=== PATIENT | female | born 1985 | race Caucasian/White ===

== ENCOUNTER 2020-05-04 06:19 | Emergency (ER) | payer OTHER, SELFPAY ==
--- NOTE | ~2020-05-04 | CT_ITS ---
EXAMINATION: CT ABDOMEN AND PELVIS WITHOUT CONTRAST CLINICAL INFORMATION: Right flank pain COMPARISON: None TECHNIQUE: Multidetector volumetric imaging was performed from the superior aspect of the liver through the pubic symphysis. Sagittal and coronal reformatted images were obtained on the technologist's workstation. This CT examination was performed using dose optimization techniques as appropriate, variously including the following: *Automated exposure control *Adjustment of mA and/or kV according to patient size (this includes techniques or standardized protocols for targeted exams where dose is matched to indication/reason for exam; i.e. extremities or head) *Use of iterative reconstruction technique DLP: 1087 mGy-cm FINDINGS: LUNG BASES: The visualized lung bases are unremarkable. LIVER, GALLBLADDER, AND BILIARY TREE: The liver is low in attenuation suggestive of fatty infiltration. No focal liver lesion is seen. The gallbladder is not identified. There is no biliary duct dilatation. PANCREAS: Unremarkable. SPLEEN: Unremarkable. ADRENAL GLANDS: Unremarkable. KIDNEYS AND URETERS: There is mild right hydronephrosis and ureteral dilatation from a small 2 mm right UVJ stone. There is a small 5 mm fatty lesion in the medial lower pole of the right kidney probably representing an angiomyolipoma. The left kidney is unremarkable. BLADDER: Small 2 mm right UVJ stone otherwise unremarkable exam. GASTROINTESTINAL TRACT: The small and large bowel are unremarkable. The appendix is unremarkable. The stomach is unremarkable. There is a asymmetric soft tissue along the right posterior lateral wall of the rectum axial image 77. This area measures 4.4 x 2.5 x 2.6 cm in sagittal AP and transverse dimension, for example sagittal reconstructed image 73 and coronal reconstructed image 78. ABDOMINAL WALL: There is a small umbilical hernia containing fat. LYMPH NODES: Normal. VASCULAR: Unremarkable. PELVIC VISCERA: There is an IUD in the uterus in satisfactory position. OSSEOUS STRUCTURES: There is spondylolysis and grade 2 spondylolisthesis at L5-S1. There is ankylosis of the L5-S1 disc space. CT/CT abdomen pelvis wo con IMPRESSION: Mild right hydronephrosis and ureteral dilatation from a 2 mm right UVJ stone. Fatty liver. Asymmetric soft tissue adjacent to the right posterior lateral wall of the rectum. Clinical correlation recommended.
[2020-05-04 06:25] VITALS: BP 159/84; PULSE 74; RESP 20; TEMP 36.6; O2SAT 95; BMI 42.0
[2020-05-04 06:45] LABS: MANUAL DIFF FLAG NO
--- NOTE | 2020-05-04 06:46 | PC.NURSE ---
IV established, labs and urine obtained and sent. at bedside for primary eval.
[2020-05-04 06:49] LABS: Glucose Urine UA NEG (NEG); Leukocyte Esterase Urine TRACE (NEG); Nitrite Urine NEG (NEG); Specific Gravity - Urine >= 1.030 (1.005-1.025); UACC Culture Trigger YES; Urine Blood 3+ (NEG); Urine Ketones NEG (NEG); Urine Protein 1+ MG/DL (NEG-TRACE)
[2020-05-04 06:50] LABS: Basophils Percent Auto 0.4 % (0-2); Eosinophils Absolute Auto 0.1 X10*3/uL (0.0-0.4); Eosinophils Percent Auto 1.1 % (0-4); Hematocrit 39.6 % (37-47); Hemoglobin 13.8 g/dl (12.0-16.0); Imm Gran Abs Auto 0.04 X10*3/uL (0.00-0.03); Imm Gran Pct Auto 0.4 % (0.0-0.4); Lymphocytes Absolute Auto 2.2 X10*3/uL (1.2-4.9); Lymphocytes Percent Auto 23.2 % (20-40); Mean Corpuscular HGB Conc 34.8 g/dl (31.0-35.0); Mean Corpuscular Hemoglobin 29.1 pg (27.0-33.0); Mean Corpuscular Volume 83.5 fL (80-98); Mean Platelet Volume 10.3 fL (9.4-12.3); Monocytes Absolute Auto 0.5 X10*3/uL (0.1-1.2); Monocytes Percent Auto 5.2 % (2-11); Neutrophils Absolute Auto 6.5 X10*3/uL (2.0-8.3); Neutrophils Percent Auto 69.7 % (45-73); Platelet Count 242 X10*3/uL (160-400); Red Blood Count 4.74 X10*6/uL (4.20-5.50); Red Cell Distribution Width 11.8 % (11.0-16.0); White Blood Count 9.3 X10*3/uL (4.8-10.8)
[2020-05-04 06:51] LABS: Appearance Urine TURBID; Color Urine YELLOW
--- NOTE | 2020-05-04 06:51 | ED_ITS ---
HPI - Abdominal Pain General Chief Complaint: Abdominal Pain Stated Complaint: ABD PAIN/VOMITING Time Seen by Provider: 05/04/20 06:48 Source: patient Mode of arrival: ambulatory Limitations: no limitations History of Present Illness HPI narrative: 34-year-old female came in today for evaluation of right flank/abdominal pain. 34-year-old female started to have had in with lower abdominal pain at 04:00 awoke her up from sleep, patient describes the pain as severe 10/10 sharp pain mainly in the right flank area radiates down to the right side of the abdomen and the lower left abdominal quadrant also, describes the pain as constant, associated with nausea and vomiting and diarrhea (nonbloody watery diarrhea), n ever has similar pain in the past, no vaginal bleed or discharge patient have IUD do not think she can be today. Related Data Allergies Allergy/AdvReac Type Severity Reaction Status Date / Time No Known Allergies Allergy Verified 05/04/20 06:32 Review of Systems Review of Systems All other systems are reviewed and are negative Constitutional: Reports as per HPI and Reports no additional constitutional complaints Eyes: Reports as per HPI and Reports no additional eye complaints Reports system reviewed and no additional complaints, except as documented Cardiovascular: Reports as per HPI and Reports no additional cardiovascular complaints Respiratory: Reports as per HPI and Reports no additional respiratory complaints Gastrointestinal: Reports as per HPI and Reports no additional gastrointestinal complaints Genitourinary: Reports no additional female genitourinary complaints Musculoskeletal: Reports no additional musculoskeletal complaints Skin/Breast: Reports system reviewed and no additional complaints, except as docu Psychiatric: Reports no additional psychiatric complaints Endocrine: Reports no additional endocrine complaints Hematologic/Lymphatic: Reports no additional hematologic/lymphatic complaints Allergic/Immunologic: Reports no additional allergic/immunologic complaints Reports system reviewed and no additional complaints, except as documented and Reports Abnormal speech present Physical Exam Vital Signs: Vital Signs: Last Vital Signs Temp 97.8 F 05/04/20 06:25 Pulse 77 05/04/20 07:40 Resp 16 05/04/20 07:40 BP 121/66 05/04/20 07:40 Pulse Ox 97 05/04/20 07:40 Body Mass Index 42.0 Vital signs have been reviewed as appeared to be correct. Blood pressure in the high range. Heart rate normal. Respiration rate normal. Temperature normal. Oxygen saturation normal. Appearance: Alert. Oriented X3. No acute distress. Head: Normal external exam. Normocephalic. Atraumatic. No Gan signs noted. No raccoon eyes noted Eyes: PERRLA. EOMI. Conjunctiva and sclera normal. Eyelids normal. ENT: TM's Normal. Pharynx normal. Uvula midline. Moist mucous membranes. No trismus noted. No drooling noted. No muffled voice noted. Neck: Normal inspection. Neck supple. FROM. No adenopathy. Thyroid Normal. No meningeal signs. No neck mass noted. CVS: Normal heart rate and rhythm. Heart sound normal. No murmurs noted. Pulses normal throughout. Respiratory: No respiratory distress. Painless inspiration. Breath sounds normal. No wheezes/rales/rhonchi noted. Chest nontender. No accessory muscle usage noted or decreased air movement noted. Abdomen: Soft, right CVA tenderness, lower abdominal pain, no rebound tenderness, no guarding. Bowel sounds normal in all 4 quadrants. No distention noted. No organomegaly noted. No visible injury noted. Back: Right CVA tenderness. Full range of motion noted. Skin: Skin warm and dry. Normal skin color. Normal skin turgor. No rashes/lesions/lacerations noted. Extremities: No lower extremity edema. Extremities exhibit normal range of motion. Extremities nontender. Neuro: Oriented X 3. No motor deficit. No sensory deficit. Reflexes normal. Course Course Course Narrative: Assessment and plan. 34-year-old female came in with right flank pain radiating to right groin area, physical exam and CT finding in UA analyses are all consistent with right ureteric stone of 2 mm. Patient now appears comfortable with no symptoms. Patient was instructed to drink plenty of fluids and use NSAIDs for pain, and follow-up with urology. LFTs noted to be elevated which is consistent with the CT finding of fatty liver patient was instructed to follow up with PCP in the regard. MDM - Abdominal Pain Lab Data Attestation: I reviewed the patient's lab results. Result diagrams: 05/04/20 06:37 05/04/20 06:37 Labs: Lab Results 05/04/20 05/04/20 05/04/20 Range/Units 06:37 06:37 06:37 WBC 9.3 (4.8-10.8) X10*3/uL RBC 4.74 (4.20-5.50) X10*6/uL Hgb 13.8 (12.0-16.0) g/dl Hct 39.6 (37-47) % MCV 83.5 (80-98) fL MCH 29.1 (27.0-33.0) pg MCHC 34.8 (31.0-35.0) g/dl RDW 11.8 (11.0-16.0) % Plt Count 242 (160-400) X10*3/uL MPV 10.3 (9.4-12.3) fL Immature Gran % (Auto) 0.4 (0.0-0.4) % Neut % (Auto) 69.7 (45-73) % Lymph % (Auto) 23.2 (20-40) % [place] % (Auto) 5.2 (2-11) % Eos % (Auto) 1.1 (0-4) % Baso % (Auto) 0.4 (0-2) % Lymph # (Auto) 2.2 (1.2-4.9) X10*3/uL [place] # (Auto) 0.5 (0.1-1.2) X10*3/uL Eos # (Auto) 0.1 (0.0-0.4) X10*3/uL Baso # (Auto) 0.0 (0.0-0.2) X10*3/uL Abs Immat Gran (auto) 0.04 H (0.00-0.03) X10*3/uL Absolute Neuts (auto) 6.5 (2.0-8.3) X10*3/uL Absolute Nucleated RBC 0.000 (0.0-0.012) X10*3/uL Nucleated RBC % (auto) 0.0 (0.0-0.2) /100WBC Hold Blue Top Sodium 139 (135-145) mmol/L Potassium 3.7 (3.3-5.1) mmol/L Chloride 104 (96-108) mmol/L Carbon Dioxide 20 L (22-29) mmol/L Anion Gap 19 (12-20) BUN 16 (9-16) mg/dL Creatinine 0.65 (0.5-1.4) mg/dL Estim Creat Clear Calc 138.2 Estimated GFR > 60 Random Glucose 179 H (60-115) mg/dL Calcium 9.3 (8.4-10.2) mg/dL Total Bilirubin 1.2 H (0.0-1.0) mg/dL Direct Bilirubin 0.4 (0.0-0.5) mg/dL AST 48 H (5-31) U/L ALT 73 H (0-31) U/L Alkaline Phosphatase 57 (39-117) U/L Total Protein 7.4 (6.5-8.0) g/dL Albumin 4.7 (3.5-5.0) g/dL Lipase 36 (8-78) U/L Urine Color YELLOW Urine Appearance TURBID Urine pH 5.0 (5.0-8.0) Ur Specific [place] >= 1.030 H (1.005-1.025) Urine Protein 1+ H (NEG-TRACE) MG/DL Urine Glucose (UA) NEG (NEG) MG/DL Urine Ketones NEG (NEG) MG/DL Urine Blood 3+ H (NEG) Urine Nitrite NEG (NEG) Ur Leukocyte Esterase TRACE H (NEG) Urine RBC 10-14 H (0) /HPF Urine WBC 1-4 (0-4) /HPF Ur Squamous Epith Cells 2+ /LPF Amorphous Sediment 3+ /LPF Urine Bacteria NONE /LPF Urine Mucus 2+ /LPF Urine Test (NEGATIVE) 05/04/20 05/04/20 Range/Units 06:37 06:40 WBC (4.8-10.8) X10*3/uL RBC (4.20-5.50) X10*6/uL Hgb (12.0-16.0) g/dl Hct (37-47) % MCV (80-98) fL MCH (27.0-33.0) pg MCHC (31.0-35.0) g/dl RDW (11.0-16.0) % Plt Count (160-400) X10*3/uL MPV (9.4-12.3) fL Immature Gran % (Auto) (0.0-0.4) % Neut % (Auto) (45-73) % Lymph % (Auto) (20-40) % [place] % (Auto) (2-11) % Eos % (Auto) (0-4) % Baso % (Auto) (0-2) % Lymph # (Auto) (1.2-4.9) X10*3/uL [place] # (Auto) (0.1-1.2) X10*3/uL Eos # (Auto) (0.0-0.4) X10*3/uL Baso # (Auto) (0.0-0.2) X10*3/uL Abs Immat Gran (auto) (0.00-0.03) X10*3/uL Absolute Neuts (auto) (2.0-8.3) X10*3/uL Absolute Nucleated RBC (0.0-0.012) X10*3/uL Nucleated RBC % (auto) (0.0-0.2) /100WBC Hold Blue Top SEE NOTE Sodium (135-145) mmol/L Potassium (3.3-5.1) mmol/L Chloride (96-108) mmol/L Carbon Dioxide (22-29) mmol/L Anion Gap (12-20) BUN (9-16) mg/dL Creatinine (0.5-1.4) mg/dL Estim Creat Clear Calc Estimated GFR Random Glucose (60-115) mg/dL Calcium (8.4-10.2) mg/dL Total Bilirubin (0.0-1.0) mg/dL Direct Bilirubin (0.0-0.5) mg/dL AST (5-31) U/L ALT (0-31) U/L Alkaline Phosphatase (39-117) U/L Total Protein (6.5-8.0) g/dL Albumin (3.5-5.0) g/dL Lipase (8-78) U/L Urine Color Urine Appearance Urine pH (5.0-8.0) Ur Specific [place] (1.005-1.025) Urine Protein (NEG-TRACE) MG/DL Urine Glucose (UA) (NEG) MG/DL Urine Ketones (NEG) MG/DL Urine Blood (NEG) Urine Nitrite (NEG) Ur Leukocyte Esterase (NEG) Urine RBC (0) /HPF Urine WBC (0-4) /HPF Ur Squamous Epith Cells /LPF Amorphous Sediment /LPF Urine Bacteria /LPF Urine Mucus /LPF Urine Test NEG (NEGATIVE) Imaging Data CT scan - abdomen: Radiologist's impression: Mild right hydronephrosis and ureteral dilatation from a 2 mm right UVJ stone. Fatty liver. Asymmetric soft tissue adjacent to the right posterior lateral wall of the rectum. Clinical correlation recommended. [facility] Past Medical History Surgical History History of cholecystectomy Social History Social History Advance Directives: No Advance Directives Information Provided: No
[2020-05-04 06:52] LABS: UPreg QC Valid YES; Urine Pregnancy NEG (NEGATIVE)
[2020-05-04] MEDS: ondansetron HCL 4 MG/2 ML VIAL IVPUSH (07:04)
[2020-05-04] MEDS: 0.9 % Sodium Chloride 1,000 ML 999 ML IVCONT (07:04)
[2020-05-04] MEDS: Ketorolac Tromethamine 15 MG/ML VIAL IV (07:04)
[2020-05-04] MEDS: Morphine Sulfate 2 MG/ML CARTRIDGE 1 MG IVPUSH (07:04)
[2020-05-04 07:08] LABS: Amorphous Sediment Urine 3+ /LPF; Mucus Urine 2+ /LPF; Squamous Epithelial Cell Urine 2+ /LPF
[2020-05-04 07:17] LABS: Alanine Aminotransferase 73 U/L (0-31); Albumin Level 4.7 g/dL (3.5-5.0); Alkaline Phosphatase 57 U/L (39-117); Anion Gap 19 (12-20); Aspartate Amino Transferase 48 U/L (5-31); Bilirubin Direct 0.4 mg/dL (0.0-0.5); Bilirubin Total 1.2 mg/dL (0.0-1.0); Blood Urea Nitrogen 16 mg/dL (9-16); Calcium 9.3 mg/dL (8.4-10.2); Carbon Dioxide 20 mmol/L (22-29); Chloride 104 mmol/L (96-108); Creatinine Clr Calc Pharmacy 138.2; Estimated Glomerular Filt Rate > 60; Glucose Random 179 mg/dL (60-115); Lipase 36 U/L (8-78); Potassium 3.7 mmol/L (3.3-5.1); Sodium 139 mmol/L (135-145); Total Protein 7.4 g/dL (6.5-8.0)
[2020-05-04 07:40] VITALS: BP 121/66; PULSE 77; RESP 16; O2SAT 97
== END 2020-05-04 10:05 | disposition home or self-care (01) ==
PROVIDERS: Emergency Provider Emergency Medicine
DX: N13.2 Hydronephrosis with renal and ureteral calculous obstruction (principal); N39.0 Urinary tract infection, site not specified; K76.0 Fatty (change of) liver, not elsewhere classified; Z90.49 Acquired absence of other specified parts of digestive tract
CPT/HCPCS: 36415; 74176; 80048; 80076; 81001; 81003; 81025; 83690; 85025; 87086; 87147; 96361; 96374; 96375; 99284; J1885; J2270; J2405

== ENCOUNTER → 2020-06-14 14:58 | Outpatient (BNVA) | payer OTHER, SELFPAY | PROVIDERS: Visit Provider Urology | DX: N20.0 Calculus of kidney (principal) | CPT/HCPCS: 99202 ==

== ENCOUNTER 2020-10-21 11:34 | Emergency (ER) | payer OTHER, SELFPAY ==
--- NOTE | ~2020-10-21 | CT_ITS ---
EXAMINATION: CT HEAD WITHOUT CONTRAST CLINICAL INFORMATION: Headache. COMPARISON: None TECHNIQUE: Contiguous axial imaging was performed from the skull base to vertex without intravenous administration of contrast. Additional 2-D coronal and sagittal reformatted images are generated on the CT workstation and uploaded to PACS. This CT examination was performed using dose optimization techniques as appropriate, variously including the following: *Automated exposure control *Adjustment of mA and/or kV according to patient size (this includes techniques or standardized protocols for targeted exams where dose is matched to indication/reason for exam; i.e. extremities or head) *Use of iterative reconstruction technique DLP: 850 mGy-cm FINDINGS: There is no intracranial hemorrhage, hematoma, or extra-axial fluid collection. The ventricles are normal in size. There is no hydrocephalus, edema, or mass effect. The bryant-white matter differentiation appears symmetric. There is no visible acute territorial infarct or mass lesion. The calvarium appears intact. There is no pneumocephalus or orbital emphysema. The visualized sinuses and middle ears and mastoid air cells show no significant mucosal thickening. There are no air-fluid levels. CT/CT head/brain wo con IMPRESSION: Unremarkable noncontrast CT head.
[2020-10-21 11:39] VITALS: BP 136/74; PULSE 79; RESP 16; TEMP 36.4; O2SAT 94; BMI 42.0
[2020-10-21 12:20] LABS: MANUAL DIFF FLAG NO
[2020-10-21 12:22] LABS: Basophils Percent Auto 0.5 % (0-2); Eosinophils Absolute Auto 0.2 X10*3/uL (0.0-0.4); Eosinophils Percent Auto 1.9 % (0-4); Hematocrit 41.5 % (37-47); Hemoglobin 14.6 g/dl (12.0-16.0); Imm Gran Abs Auto 0.01 X10*3/uL (0.00-0.03); Imm Gran Pct Auto 0.1 % (0.0-0.4); Lymphocytes Absolute Auto 2.5 X10*3/uL (1.2-4.9); Lymphocytes Percent Auto 28.8 % (20-40); Mean Corpuscular HGB Conc 35.2 g/dl (31.0-35.0); Mean Corpuscular Hemoglobin 29.1 pg (27.0-33.0); Mean Corpuscular Volume 82.7 fL (80-98); Mean Platelet Volume 10.9 fL (9.4-12.3); Monocytes Absolute Auto 0.6 X10*3/uL (0.1-1.2); Monocytes Percent Auto 7.3 % (2-11); Neutrophils Absolute Auto 5.2 X10*3/uL (2.0-8.3); Neutrophils Percent Auto 61.4 % (45-73); Platelet Count 213 X10*3/uL (160-400); Red Blood Count 5.02 X10*6/uL (4.20-5.50); Red Cell Distribution Width 12.2 % (11.0-16.0); White Blood Count 8.5 X10*3/uL (4.8-10.8)
[2020-10-21 12:38] LABS: Anion Gap 16 (12-20); Blood Urea Nitrogen 6 mg/dL (9-16); Calcium 9.8 mg/dL (8.4-10.2); Carbon Dioxide 23 mmol/L (22-29); Chloride 104 mmol/L (96-108); Creatinine Clr Calc Pharmacy 156.1; Estimated Glomerular Filt Rate > 60; Glucose Random 95 mg/dL (60-115); Potassium 3.6 mmol/L (3.3-5.1); Sodium 139 mmol/L (135-145)
--- NOTE | 2020-10-21 14:20 | ED_ITS ---
HPI - Headache General Chief Complaint: Headache Stated Complaint: HEADACHE Time Seen by Provider: 10/21/20 14:20 Source: patient Mode of arrival: ambulatory Limitations: no limitations History of Present Illness MD elicited complaint: headache Onset (ago): day(s) (2) Onset description: gradually Location: right, left, temporal and occipital Severity: moderate Quality & Timing: aching and throbbing Exacerbating factors: none Relieving factors: nothing Context: occurred at rest Associated symptoms: nausea and other (blurry vision, nausea, BP has been up 140/80s) Treatments prior to arrival: acetaminophen Related Data Home Medications Medication Instructions Recorded Confirmed clotrimazole-betamethasone 1 appl TOPICAL BID 06/14/20 %-0.05 % topical cream Previous Rx's Medication Instructions Recorded ibuprofen 600 mg tablet 600 mg PO Q8H PRN #20 tab 05/04/20 [id number] 1 tab PO Q6H PRN #20 tab 10/21/20 50 mg-325 mg-40 mg tablet cyclobenzaprine 10 mg tablet 10 mg PO TID PRN #14 tab 10/21/20 ondansetron 4 mg disintegrating 4 mg PO Q8H PRN #20 tab 10/21/20 tablet Allergies Allergy/AdvReac Type Severity Reaction Status Date / Time No Known Allergies Allergy Verified 05/04/20 06:32 Review of Systems Review of Systems: Constitutional : No Fever, No Chills, No Fatigue ENT/Mouth : No sore throat, No Rhinorrhea Eyes: No Eye Pain, No Swelling, No Redness Cardiovascular : No Chest Pain, No SOB, No Dyspnea on Exertion Respiratory : No Cough, No Sputum Gastrointestinal : pos Nausea, No Vomiting, No Diarrhea, No abdominal Pain Genitourinary : No Dysuria, No Urinary Frequency, No Hematuria, Musculoskeletal : No joint pain, No Myalgias, No Joint Swelling Skin : No Skin Lesions, No rash Neuro : No Weakness, No Numbness, No Dizziness, positive Headache Psych : No Anxiety/Panic, No Depression Heme/Lymph: No Bruising, No Bleeding,No Lymphadenopathy Endocrine : No Polyuria, No Polydipsia All other systems reviewed and are negative PMFSH Past Medical History Attestation statement: The following information was validated with the patient. Medical History Nephrolithiasis Surgical History History of cholecystectomy History of surgery Social History Social History (Updated 10/21/20 @ 14:40 by Kyra Haynes DO) Alcohol intake: current Alcohol intake frequency: holidays/special occasions only Patient Tobacco Use Status: Never used Tobacco Use of substances other than those prescribed or required for medical reasons: No Advance Directives: Yes Advance Directives Information Provided: Yes Advance Directives on File: No Physical Exam Vital Signs: Vital Signs: Last Vital Signs Temp 97.5 F 10/21/20 11:39 Pulse 79 10/21/20 11:39 Resp 16 10/21/20 11:39 BP 136/74 10/21/20 11:39 Pulse Ox 94 10/21/20 11:39 Body Mass Index 42.0 Appearance: Alert. Oriented X3. No acute distress. Eyes: Pupils equal, round and reactive to light. ENT: Pharynx normal. Neck: Normal inspection. Neck supple. no meningeal signs CVS: Normal heart rate and rhythm. Pulses normal. Respiratory: No respiratory distress. Breath sounds normal. Abdomen: Soft and non-tender. Skin: Skin warm and dry. Normal skin color. Normal skin turgor. Extremities: No lower extremity edema. No calf ttp Neuro: Oriented X 3. No motor deficit. No sensory deficit. Course Course Course Narrative: feels better negative workup MDM - Headache MDM Narrative Medical decision making narrative: 35 yo female with 2 days of headache with BPs in 140s felt her vision was blurry this AM with nausea - at this time no fevers, gradual onset, No AC therapy at this time given onset no fevers gradual normal neuro exams, no meningeal signs doubt FERRY CAPTAIN infection / SAH - will obtain labs, PO medications, CT scan for mass. Lab Data Result diagrams: 10/21/20 12:13 10/21/20 12:12 Labs: Lab Results 10/21/20 10/21/20 Range/Units 12:12 12:13 WBC 8.5 (4.8-10.8) X10*3/uL RBC 5.02 (4.20-5.50) X10*6/uL Hgb 14.6 (12.0-16.0) g/dl Hct 41.5 (37-47) % MCV 82.7 (80-98) fL MCH 29.1 (27.0-33.0) pg MCHC 35.2 H (31.0-35.0) g/dl RDW 12.2 (11.0-16.0) % Plt Count 213 (160-400) X10*3/uL MPV 10.9 (9.4-12.3) fL Immature Gran % (Auto) 0.1 (0.0-0.4) % Neut % (Auto) 61.4 (45-73) % Lymph % (Auto) 28.8 (20-40) % [place] % (Auto) 7.3 (2-11) % Eos % (Auto) 1.9 (0-4) % Baso % (Auto) 0.5 (0-2) % Lymph # (Auto) 2.5 (1.2-4.9) X10*3/uL [place] # (Auto) 0.6 (0.1-1.2) X10*3/uL Eos # (Auto) 0.2 (0.0-0.4) X10*3/uL Baso # (Auto) 0.0 (0.0-0.2) X10*3/uL Abs Immat Gran (auto) 0.01 (0.00-0.03) X10*3/uL Absolute Neuts (auto) 5.2 (2.0-8.3) X10*3/uL Absolute Nucleated RBC 0.000 (0.0-0.012) X10*3/uL Nucleated RBC % (auto) 0.0 (0.0-0.2) /100WBC Sodium 139 (135-145) mmol/L Potassium 3.6 (3.3-5.1) mmol/L Chloride 104 (96-108) mmol/L Carbon Dioxide 23 (22-29) mmol/L Anion Gap 16 (12-20) BUN 6 L D (9-16) mg/dL Creatinine 0.57 (0.5-1.4) mg/dL Estim Creat Clear Calc 156.1 Estimated GFR > 60 Random Glucose 95 D (60-115) mg/dL Calcium 9.8 (8.4-10.2) mg/dL Discharge Plan Discharge Clinical Impression: Migraine Qualifiers: Migraine type: unspecified Status migrainosus presence: without status migrainosus Intractability: not intractable Qualified Code(s): G43.909 - Migraine, unspecified, not intractable, without status migrainosus Patient Disposition: Home, Self-Care Instructions: Migraine Headache (ED) Additional Instructions: return to ED for any worsening symptoms or concerns Prescriptions: New cyclobenzaprine 10 mg tablet 10 mg PO TID PRN (Reason: muscle spasm) Qty: 14 RF: 0 tigiyamiao-irihwjzgoirbi-kybv 50-325-40 mg tablet 1 tab PO Q6H PRN (Reason: pain) Qty: 20 RF: 0 ondansetron 4 mg tablet,disintegrating 4 mg PO Q8H PRN (Reason: nausea and vomiting) Qty: 20 RF: 0 No Action ibuprofen 600 mg tablet 600 mg PO Q8H PRN (Reason: fever or pain) Qty: 20 RF: 0
[2020-10-21] MEDS: Ondansetron ODT 4 MG TAB.RAPDIS TRANSLINGU (15:22)
[2020-10-21] MEDS: Cyclobenzaprine HCl 10 MG TABLET PO (15:22)
[2020-10-21] MEDS: Butalb/Acetamin/Caff 50/325/40 TABLET 1 TAB PO (15:23)
[2020-10-21 15:54] VITALS: BP 129/83; PULSE 64; RESP 16; TEMP 36.8; O2SAT 100
[2020-10-21 16:08] VITALS: RESP 18
== END 2020-10-21 16:10 | disposition home or self-care (01) ==
PROVIDERS: Emergency Provider Emergency Medicine
DX: G43.909 Migraine, unspecified, not intractable, without status migrainosus (principal); Z79.899 Other long term (current) drug therapy
CPT/HCPCS: 36415; 70450; 80048; 85025; 99284

== ENCOUNTER 2020-12-08 15:22 | Outpatient (REF) | payer OTHER, SELFPAY ==
--- NOTE | ~2020-12-08 | US_ITS ---
EXAMINATION: US RETROPERITONEAL LIMITED (RENAL ONLY) CLINICAL INFORMATION: Calculus of kidney. COMPARISON: CT abdomen and pelvis 05/04/2020. TECHNIQUE: Real-time imaging of the kidneys. FINDINGS: RIGHT KIDNEY: 13.2 x 5.78 x 6.7 cm (SAG x AP x TRV). The kidney is normal in size, contour, and echogenicity. Renal cortical thickness is normal. No calculi or focal parenchymal lesions. No hydronephrosis. LEFT KIDNEY: 11.8 x 5.17 x 6.3 cm (SAG x AP x TRV). The kidney is normal in size, contour, and echogenicity. Renal cortical thickness is normal. No calculi or focal parenchymal lesions. No hydronephrosis. US/US renal BI IMPRESSION: Normal renal ultrasound.
== END 2020-12-08 15:23 | disposition home or self-care (01) ==
LOC: HO.HMGCX 15:22
PROVIDERS: Visit Provider Urology
DX: N20.0 Calculus of kidney (principal)
CPT/HCPCS: 76775

== ENCOUNTER → 2020-12-20 15:22 | Outpatient (BNVA) | payer OTHER, SELFPAY | PROVIDERS: Visit Provider Urology ==

== ENCOUNTER → 2021-01-24 15:18 | Outpatient (BNVA) | payer OTHER, SELFPAY | PROVIDERS: Visit Provider Obstetrics & Gynecology | DX: Z30.09 Encounter for other general counseling and advice on contraception (principal) | CPT/HCPCS: 99202 ==

== ENCOUNTER 2021-02-09 11:15 | Outpatient (REF) | payer OTHER, SELFPAY ==
[2021-02-09 12:16] LABS: Influenza A PCR NEGATIVE (Negative); Influenza B PCR NEGATIVE (Negative); Resp Syncy Virus RNA Qual PCR NEGATIVE (Negative); SARS COV2 PCR INHOUSE POSITIVE (Negative)
== END 2021-02-09 11:16 | disposition home or self-care (01) ==
LOC: HO.LNP 11:15
PROVIDERS: Visit Provider Physician Assistant Medical
DX: Z20.822 Contact with and (suspected) exposure to COVID-19 (principal); J06.9 Acute upper respiratory infection, unspecified
CPT/HCPCS: 0241U

== ENCOUNTER 2021-11-08 15:12 | Outpatient (REF) | payer OTHER, SELFPAY ==
--- NOTE | ~2021-11-08 | US_ITS ---
EXAMINATION: US RETROPERITONEAL LIMITED (RENAL ONLY) CLINICAL INFORMATION: Calculus of kidney. COMPARISON: Renal ultrasound 12/08/2020. CT abdomen and pelvis 05/04/2020. TECHNIQUE: Real-time imaging of the kidneys. FINDINGS: RIGHT KIDNEY: 13.8 x 5.8 x 6.3 cm (SAG x AP x TRV). The kidney is normal in size, contour, and echogenicity. Renal cortical thickness is normal. No renal calculi or hydronephrosis. At the interpolar aspect medially, a 0.9 x 1.1 x 0.8 cm hyperechoic, circumscribed mass is seen, with features consistent with a benign angiomyolipoma. This correlates with CT imaging dated 05/04/2020 (7:72). LEFT KIDNEY: 12.6 x 6.1 x 6.0 cm (SAG x AP x TRV). The kidney is normal in size, contour, and echogenicity. Renal cortical thickness is normal. No calculi or focal parenchymal lesions. No hydronephrosis. US/US renal BI IMPRESSION: 1. No bilateral renal calculus or obstructive uropathy is seen. 2. 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
== END 2021-11-08 15:13 | disposition home or self-care (01) ==
LOC: HO.HMGCX 15:12
PROVIDERS: Visit Provider Urology
DX: N20.0 Calculus of kidney (principal)
CPT/HCPCS: 76775

== ENCOUNTER → 2021-12-19 13:39 | Outpatient (BNVA) | payer OTHER, SELFPAY | PROVIDERS: PCP Internal Medicine; Visit Provider Urology | DX: N20.0 Calculus of kidney (principal) | CPT/HCPCS: 99212 ==

== ENCOUNTER 2022-04-19 08:52 | Emergency (ER) | payer OTHER, SELFPAY ==
--- NOTE | ~2022-04-19 | XR_ITS ---
EXAMINATION: XR CHEST CLINICAL INFORMATION: Chest pain COMPARISON: None TECHNIQUE: Frontal view of the chest was obtained. FINDINGS: No significant abnormality is noted involving the heart, lungs, mediastinum, bony thorax or soft tissues. XR/XR chest 1V IMPRESSION: Unremarkable examination.
--- NOTE | ~2022-04-19 | CT_ITS ---
EXAMINATION: CT ABDOMEN AND PELVIS WITHOUT CONTRAST CLINICAL INFORMATION: Right-sided flank pain COMPARISON: CT abdomen pelvis 05/04/2020 TECHNIQUE: Multidetector volumetric imaging was performed from the superior aspect of the liver through the pubic symphysis. Sagittal and coronal reformatted images were obtained on the technologist's workstation. This CT examination was performed using dose optimization techniques as appropriate, variously including the following: *Automated exposure control *Adjustment of mA and/or kV according to patient size (this includes techniques or standardized protocols for targeted exams where dose is matched to indication/reason for exam; i.e. extremities or head) *Use of iterative reconstruction technique DLP: 1028 mGy-cm FINDINGS: LUNG BASES: The visualized lung bases are unremarkable. LIVER, GALLBLADDER, AND BILIARY TREE: The liver is enlarged measuring at least 20 cm in cephalocaudad dimension. The entire liver is not included on this study. In attenuation is markedly decreased consistent with hepatic steatosis. No focal hepatic lesion or biliary ductal dilatation is present. The gallbladder is not seen. PANCREAS: Unremarkable. SPLEEN: Spleen is enlarged at 13.9 cm. ADRENAL GLANDS: Unremarkable. KIDNEYS AND URETERS: The kidneys are normal in size, shape, and attenuation. There is 0.8 cm cortical benign angiomyolipoma at the mid to lower pole of the left kidney posteriorly. No worrisome solid masses are seen. No hydronephrosis, hydroureter, or calculi seen. No perinephric stranding. BLADDER: Unremarkable. GASTROINTESTINAL TRACT: The small and large bowel are unremarkable aside from a few scattered colonic diverticula without diverticulitis. The appendix is unremarkable. ABDOMINAL WALL: No significant hernia is appreciated. LYMPH NODES: No retroperitoneal lymphadenopathy. VASCULAR: Unremarkable. PELVIC VISCERA: The uterus, which contains an IUD in good position, and adnexa are unremarkable. No free pelvic fluid is seen. OSSEOUS STRUCTURES: There is marked grade 2-3 anterolisthesis of L5 upon S1. No bony destructive lesions CT/CT abdomen pelvis wo IV con IMPRESSION: 1. A cause for the patient's right-sided flank pain has not been found. 2. Incidental note made of an enlarged fatty liver, mild splenomegaly, benign left renal angiomyolipoma and grade 2-3 anterolisthesis of L5 upon S1. Fleischner guidelines were followed.
[2022-04-19 09:18] VITALS: BP 170/89; PULSE 88; RESP 18; TEMP 36.5; O2SAT 97; BMI 43.9
[2022-04-19 09:30] LABS: MANUAL DIFF FLAG NO
[2022-04-19 09:32] LABS: Basophils Absolute Auto 0.1 X10*3/uL (0.0-0.2); Basophils Percent Auto 0.6 % (0-2); Eosinophils Absolute Auto 0.3 X10*3/uL (0.0-0.4); Eosinophils Percent Auto 3.5 % (0-4); Hematocrit 38.6 % (37.0-47.0); Hemoglobin 13.6 g/dl (12.0-16.0); Imm Gran Abs Auto 0.02 X10*3/uL (0.00-0.03); Imm Gran Pct Auto 0.3 % (0.0-0.4); Lymphocytes Absolute Auto 2.8 X10*3/uL (1.2-4.9); Lymphocytes Percent Auto 35.2 % (20-40); Mean Corpuscular HGB Conc 35.2 g/dl (31.0-35.0); Mean Corpuscular Volume 82.3 fL (80.0-98.0); Mean Platelet Volume 10.2 fL (9.4-12.3); Monocytes Absolute Auto 0.4 X10*3/uL (0.1-1.2); Monocytes Percent Auto 4.9 % (2-11); Neutrophils Absolute Auto 4.3 x10*3/uL (2.0-8.3); Neutrophils Percent Auto 55.5 % (45-73); Platelet Count 269 X10*3/uL (160-400); Red Blood Count 4.69 X10*6/uL (4.20-5.50); Red Cell Distribution Width 12.7 % (11.0-16.0); White Blood Count 7.8 X10*3/uL (4.8-10.8)
[2022-04-19 09:40] VITALS: BP 171/84; PULSE 80; RESP 18; TEMP 36.9; O2SAT 99
[2022-04-19 10:02] LABS: Anion Gap 12 (12-20); Blood Urea Nitrogen 13 mg/dL (9-16); Carbon Dioxide 26 mmol/L (22-29); Chloride 105 mmol/L (96-108); Creatinine Clr Calc Pharmacy 150.5; Estimated Glomerular Filt Rate > 60; Glucose Random 197 mg/dL (60-115); Potassium 3.8 mmol/L (3.3-5.1); Sodium 139 mmol/L (135-145)
[2022-04-19 11:33] LABS: Appearance Urine Clear; Color Urine Yellow; Glucose Urine UA Negative (Negative); Leukocyte Esterase Urine Trace (Negative); Nitrite Urine Negative (Negative); Specific Gravity - Urine 1.025 (1.005-1.025); UMIC TRIGGER UACC YES; Urine Blood Negative (Negative); Urine Ketones Negative (Negative); Urine Protein Negative (Neg-Trace)
[2022-04-19 11:35] LABS: Bacteria Urine None Seen (None Seen); Hyaline Casts Urine 0-2 /LPF (0-2); RBC Urine 0-2 /HPF (0-2); Squamous Epithelial Cell Urine 0-2 /HPF (0-2); WBC Urine 0-5 /HPF (0-5)
[2022-04-19 11:53] VITALS: BP 155/92; PULSE 75; RESP 18; TEMP 36.9; O2SAT 98
--- NOTE | 2022-04-19 12:24 | ED_ITS ---
HPI - General Adult General Chief complaint: Back Pain/Injury Stated complaint: Rectal bleed/Flank pain Time Seen by Provider: 04/19/22 09:49 History of Present Illness HPI narrative: Patient is 36-year-old female present today with having right sided rib pain. It wraps around. Patient denies any changes with deep breath. . No history of diabetes, hypertension, HI, family history of HI. No history of smoking. Patient also complaining of having normal stool but when she defecates she also see some blood when she wipes. Patient is from home. There is no vaginal bleeding. She does not think she is . She has a Mirena. She is sexually active there is no vaginal discharge noted. Patient does have a history of kidney stones. Patient denies any fever or chills. No coughing or congestion or upper respiratory symptoms. No diaphoresis. No rash noted Related Data Home Medications Medication Instructions Recorded Confirmed clotrimazole-betamethasone 1 appl topical BID 06/14/20 %-0.05 % topical cream hydroxyzine HCl 25 mg tablet 25 mg PO BID 12/20/20 sertraline 100 mg tablet 100 mg PO DAILY 12/20/20 levonorgestrel 20 mcg/24 hours (8 intrauterine / yrs) 52 mg intrauterine device (Mirena) duloxetine 30 mg capsule,delayed 0 mg PO 12/18/21 release Previous Rx's Medication Instructions Recorded ibuprofen 600 mg tablet 600 mg PO Q8H PRN fever or pain 05/04/20 #20 tabs pjezschjvb-qcymzpqlwcglu-iqwsupvd 1 tab PO Q6H PRN pain #20 tabs 10/21/20 50 mg-325 mg-40 mg tablet cyclobenzaprine 10 mg tablet 10 mg PO TID PRN muscle spasm #14 10/21/20 tabs ondansetron 4 mg disintegrating 4 mg PO Q8H PRN nausea and 10/21/20 tablet vomiting #20 tabs pyridoxine (vitamin B6) 100 mg 100 mg PO DAILY 90 days #90 tabs 03/13/22 tablet Allergies Allergy/AdvReac Type Severity Reaction Status Date / Time No Known Allergies Allergy Verified 12/19/21 13:49 Review of Systems Review of Systems: Positive pain to the right rib. [facility] Past Medical History Attestation statement: The following information was validated with the patient. Medical History Anxiety Nephrolithiasis Seasonal allergies Surgical History History of cholecystectomy History of surgery Social History Social History Alcohol intake: current Alcohol intake frequency: holidays/special occasions only Patient Tobacco Use Status: Never used Tobacco Smoked in Last 30 Days: No Use of substances other than those prescribed or required for medical reasons: Yes Substance Use Type: Marijuana Substance Use Frequency: Occasionally Advance Directives: No Advance Directives Information Provided: Yes Patient : No Gender identity: Female Physical Exam ED Vital Signs: Vital Signs - 24 hr 04/19/22 09:18 04/19/22 09:40 04/19/22 11:53 Temperature 97.7 F 98.4 F 98.4 F Pulse Rate 88 80 75 Respiratory Rate 18 18 18 Blood Pressure 170/89 H 171/84 H 155/92 H Pulse Oximetry 97 99 98 Oxygen Delivery Method Room Air Room Air Room Air BMI result Body Mass Index 43.9 Appearance: Alert. Oriented X3. No acute distress. Eyes: Pupils equal, round and reactive to light. ENT: Pharynx normal. Neck: Normal inspection. Neck supple. No lymph nodes noted. No crepitus CVS: Normal heart rate and rhythm. Pulses normal. Normal S1 and S2 Respiratory: No respiratory distress. Breath sounds normal. No Wheezing. No rales Abdomen: Soft and nontender. No rigidity. No distention. good BS x4 Skin: Skin warm and dry. Normal skin color. Normal skin turgor. Skin over the lower chest pain was evaluated with nurse Jayshree present. There is no gross evidence for shingles. Rectal exam done with nurse there are present. Only mucus was found. No gross blood noted. No gross hemorrhoid noted Extremities: No lower extremity edema. Neurovascular intact to all extremities. No Lacerations. No Rash Neuro: Oriented X 3. No motor deficit. No sensory deficit. Moving all extermities. No slurred speech Medical Decision Making Medical Decision Making MDM Narrative: Patient 36 years old presented today with having right lower chest pain. The pain is sharp. Patient is not on any control pills. No history of travel. Not made worse with deep breath. Her x-ray was grossly negative for any acute evidence of pneumonia. Patient's D-dimer is negative. Making PE unlikely in the setting of low risk. Patient's EKG showed a sinus rhythm heart rate is 80 CO QRS QT within normal limits there is no acute ST segment elevation noted. First and 2nd set of troponin was 18 and 20 respectively. In the setting of low wrist this is negative. Patient's test is negative. CT scan of the abdomen pelvis was negative for any acute evidence of kidney stone. No obstruction no abscess no perforation. Patient's LFTs are consistent with a fatty liver. ALT minimally elevated at 53. Her urine showed no signs of infection suggest patient has pyelonephritis. Patient will be discharged home. In stable condition. Differential Diagnosis Pyelonephritis, UTI, rib fractures, ACS, pulmonary emboli, shingles, pneumonia, intra-abdominal pathology, Lab Data MDM Lab Attestation statement: I reviewed the patient's lab results. 04/19/22 09:26 04/19/22 09:26 Labs: Lab Results 04/19/22 04/19/22 04/19/22 Range/Units 09:26 09:26 11:24 WBC 7.8 (4.8-10.8) X10*3/uL RBC 4.69 (4.20-5.50) X10*6/uL Hgb 13.6 (12.0-16.0) g/dl Hct 38.6 (37.0-47.0) % MCV 82.3 (80.0-98.0) fL MCH 29.0 (27.0-33.0) pg MCHC 35.2 H (31.0-35.0) g/dl RDW 12.7 (11.0-16.0) % Plt Count 269 (160-400) X10*3/uL MPV 10.2 (9.4-12.3) fL Immature Gran % (Auto) 0.3 (0.0-0.4) % Neut % (Auto) 55.5 (45-73) % Lymph % (Auto) 35.2 (20-40) % [place] % (Auto) 4.9 (2-11) % Eos % (Auto) 3.5 (0-4) % Baso % (Auto) 0.6 (0-2) % Lymph # (Auto) 2.8 (1.2-4.9) X10*3/uL [place] # (Auto) 0.4 (0.1-1.2) X10*3/uL Eos # (Auto) 0.3 (0.0-0.4) X10*3/uL Baso # (Auto) 0.1 (0.0-0.2) X10*3/uL Abs Immat Gran (auto) 0.02 (0.00-0.03) X10*3/uL Absolute Neuts (auto) 4.3 (2.0-8.3) x10*3/uL Absolute Nucleated RBC 0.000 (0.0-0.012) X10*3/uL Nucleated RBC % (auto) 0.0 (0.0-0.2) /100WBC D-Dimer High Sensitivty NG/ML Sodium 139 (135-145) mmol/L Potassium 3.8 (3.3-5.1) mmol/L Chloride 105 (96-108) mmol/L Carbon Dioxide 26 (22-29) mmol/L Anion Gap 12 (12-20) BUN 13 (9-16) mg/dL Creatinine 0.60 (0.5-1.4) mg/dL Estim Creat Clear Calc 150.5 Estimated GFR > 60 Random Glucose 197 H (60-115) mg/dL Calcium 9.0 D (8.4-10.2) mg/dL Total Bilirubin (0.0-1.0) mg/dL Direct Bilirubin (0.0-0.5) mg/dL AST (5-31) U/L ALT (0-31) U/L Alkaline Phosphatase (39-117) U/L Troponin I High Sens (<3.5-17.0) ng/L Total Protein (6.5-8.0) g/dL Albumin (3.5-5.0) g/dL Urine Color Yellow Urine Appearance Clear Urine pH 5.0 (5.0-9.0) Ur Specific [place] 1.025 (1.005-1.025) Urine Protein Negative (Neg-Trace) mg/dL Urine Glucose (UA) Negative (Negative) mg/dL Urine Ketones Negative (Negative) mg/dL Urine Blood Negative (Negative) Urine Nitrite Negative (Negative) Ur Leukocyte Esterase Trace H (Negative) Urine RBC 0-2 (0-2) /HPF Urine WBC 0-5 (0-5) /HPF Ur Squamous Epith Cells 0-2 (0-2) /HPF Urine Bacteria None Seen (None Seen) Hyaline Casts 0-2 (0-2) /LPF Urine Test (NEGATIVE) Stool Occult Blood (NEGATIVE) 04/19/22 04/19/22 04/19/22 Range/Units 11:24 12:21 12:51 WBC (4.8-10.8) X10*3/uL RBC (4.20-5.50) X10*6/uL Hgb (12.0-16.0) g/dl Hct (37.0-47.0) % MCV (80.0-98.0) fL MCH (27.0-33.0) pg MCHC (31.0-35.0) g/dl RDW (11.0-16.0) % Plt Count (160-400) X10*3/uL MPV (9.4-12.3) fL Immature Gran % (Auto) (0.0-0.4) % Neut % (Auto) (45-73) % Lymph % (Auto) (20-40) % [place] % (Auto) (2-11) % Eos % (Auto) (0-4) % Baso % (Auto) (0-2) % Lymph # (Auto) (1.2-4.9) X10*3/uL [place] # (Auto) (0.1-1.2) X10*3/uL Eos # (Auto) (0.0-0.4) X10*3/uL Baso # (Auto) (0.0-0.2) X10*3/uL Abs Immat Gran (auto) (0.00-0.03) X10*3/uL Absolute Neuts (auto) (2.0-8.3) x10*3/uL Absolute Nucleated RBC (0.0-0.012) X10*3/uL Nucleated RBC % (auto) (0.0-0.2) /100WBC D-Dimer High Sensitivty 155 NG/ML Sodium (135-145) mmol/L Potassium (3.3-5.1) mmol/L Chloride (96-108) mmol/L Carbon Dioxide (22-29) mmol/L Anion Gap (12-20) BUN (9-16) mg/dL Creatinine (0.5-1.4) mg/dL Estim Creat Clear Calc Estimated GFR Random Glucose (60-115) mg/dL Calcium (8.4-10.2) mg/dL Total Bilirubin (0.0-1.0) mg/dL Direct Bilirubin (0.0-0.5) mg/dL AST (5-31) U/L ALT (0-31) U/L Alkaline Phosphatase (39-117) U/L Troponin I High Sens (<3.5-17.0) ng/L Total Protein (6.5-8.0) g/dL Albumin (3.5-5.0) g/dL Urine Color Urine Appearance Urine pH (5.0-9.0) Ur Specific [place] (1.005-1.025) Urine Protein (Neg-Trace) mg/dL Urine Glucose (UA) (Negative) mg/dL Urine Ketones (Negative) mg/dL Urine Blood (Negative) Urine Nitrite (Negative) Ur Leukocyte Esterase (Negative) Urine RBC (0-2) /HPF Urine WBC (0-5) /HPF Ur Squamous Epith Cells (0-2) /HPF Urine Bacteria (None Seen) Hyaline Casts (0-2) /LPF Urine Test NEGATIVE (NEGATIVE) Stool Occult Blood NEGATIVE (NEGATIVE) 04/19/22 04/19/22 04/19/22 Range/Units 12:51 12:52 15:23 WBC (4.8-10.8) X10*3/uL RBC (4.20-5.50) X10*6/uL Hgb (12.0-16.0) g/dl Hct (37.0-47.0) % MCV (80.0-98.0) fL MCH (27.0-33.0) pg MCHC (31.0-35.0) g/dl RDW (11.0-16.0) % Plt Count (160-400) X10*3/uL MPV (9.4-12.3) fL Immature Gran % (Auto) (0.0-0.4) % Neut % (Auto) (45-73) % Lymph % (Auto) (20-40) % [place] % (Auto) (2-11) % Eos % (Auto) (0-4) % Baso % (Auto) (0-2) % Lymph # (Auto) (1.2-4.9) X10*3/uL [place] # (Auto) (0.1-1.2) X10*3/uL Eos # (Auto) (0.0-0.4) X10*3/uL Baso # (Auto) (0.0-0.2) X10*3/uL Abs Immat Gran (auto) (0.00-0.03) X10*3/uL Absolute Neuts (auto) (2.0-8.3) x10*3/uL Absolute Nucleated RBC (0.0-0.012) X10*3/uL Nucleated RBC % (auto) (0.0-0.2) /100WBC D-Dimer High Sensitivty NG/ML Sodium (135-145) mmol/L Potassium (3.3-5.1) mmol/L Chloride (96-108) mmol/L Carbon Dioxide (22-29) mmol/L Anion Gap (12-20) BUN (9-16) mg/dL Creatinine (0.5-1.4) mg/dL Estim Creat Clear Calc Estimated GFR Random Glucose (60-115) mg/dL Calcium (8.4-10.2) mg/dL Total Bilirubin 1.0 (0.0-1.0) mg/dL Direct Bilirubin 0.2 (0.0-0.5) mg/dL AST 31 (5-31) U/L ALT 53 H (0-31) U/L Alkaline Phosphatase 71 (39-117) U/L Troponin I High Sens 18.3 H 20.3 H (<3.5-17.0) ng/L Total Protein 6.7 (6.5-8.0) g/dL Albumin 4.2 (3.5-5.0) g/dL Urine Color Urine Appearance Urine pH (5.0-9.0) Ur Specific [place] (1.005-1.025) Urine Protein (Neg-Trace) mg/dL Urine Glucose (UA) (Negative) mg/dL Urine Ketones (Negative) mg/dL Urine Blood (Negative) Urine Nitrite (Negative) Ur Leukocyte Esterase (Negative) Urine RBC (0-2) /HPF Urine WBC (0-5) /HPF Ur Squamous Epith Cells (0-2) /HPF Urine Bacteria (None Seen) Hyaline Casts (0-2) /LPF Urine Test (NEGATIVE) Stool Occult Blood (NEGATIVE) External Record Review External record reviewed: Inpatient record Discharge Plan Discharge Clinical Impression: Acute chest wall pain, Chest pain Patient Disposition: Home, Self-Care Instructions: Chest Pain (DC), Chest Wall Pain (ED) Prescriptions: No Action pyridoxine (vitamin B6) 100 mg tablet 100 mg PO DAILY 90 Days Qty: 90 2RF ibuprofen 600 mg tablet 600 mg PO Q8H PRN (Reason: fever or pain) Qty: 20 0RF cyclobenzaprine 10 mg tablet 10 mg PO TID PRN (Reason: muscle spasm) Qty: 14 0RF ledpgaobyx-wqxakypupqmoc-depb 50-325-40 mg tablet 1 tab PO Q6H PRN (Reason: pain) Qty: 20 0RF ondansetron 4 mg tablet,disintegrating 4 mg PO Q8H PRN (Reason: nausea and vomiting) Qty: 20 0RF hydroxyzine HCl 25 mg tablet 25 mg PO BID sertraline 100 mg tablet 100 mg PO DAILY clotrimazole-betamethasone 1-0.05 % cream topical BID duloxetine 30 mg capsule,delayed release(DR/EC) 0 mg PO Mirena 20 mcg/24 hours (7 yrs) 52 mg intrauterine device intrauterine Referrals: Cecily May MD [Primary Care Provider] - Michele Ayala MD [Physician] -
[2022-04-19 12:27] LABS: OBS Int Ctl Valid YES; OBS1 NEGATIVE (NEGATIVE)
[2022-04-19 12:36] LABS: UPreg QC Valid YES; Urine Pregnancy NEGATIVE (NEGATIVE)
[2022-04-19 13:04] LABS: D Dimer High Sensitivity 155 NG/ML
--- NOTE | 2022-04-19 14:00 | ECG_ITS ---
Test Reason : CP Blood Pressure : / mmHG Vent. Rate : 083 BPM Atrial Rate : 083 BPM P-R Int : 144 ms QRS Dur : 078 ms QT Int : 376 ms P-R-T Axes : 040 -02 018 degrees QTc Int : 441 ms Normal sinus rhythm Normal ECG No previous ECGs available Referred By: Lynne Matt Electronically Signed By:MOLLY JUAREZ
[2022-04-19 14:58] LABS: Troponin-I High Sensitivity 18.3 ng/L (<3.5-17.0)
[2022-04-19 14:59] LABS: Alanine Aminotransferase 53 U/L (0-31); Albumin Level 4.2 g/dL (3.5-5.0); Alkaline Phosphatase 71 U/L (39-117); Aspartate Amino Transferase 31 U/L (5-31); Bilirubin Direct 0.2 mg/dL (0.0-0.5); Total Protein 6.7 g/dL (6.5-8.0)
[2022-04-19 15:52] LABS: Troponin-I High Sensitivity 20.3 ng/L (<3.5-17.0)
== END 2022-04-19 16:44 | disposition home or self-care (01) ==
PROVIDERS: Emergency Provider Emergency Medicine Emergency Medical Services; PCP Internal Medicine
DX: R07.89 Other chest pain (principal); M54.50 Low back pain, unspecified; R07.81 Pleurodynia; R10.9 Unspecified abdominal pain; Z79.899 Other long term (current) drug therapy
CPT/HCPCS: 36415; 71045; 74176; 80048; 80076; 81001; 81025; 82272; 84484; 85025; 85379; 93005; 99284

== ENCOUNTER 2022-12-10 10:37 | Outpatient (REF) | payer OTHER, SELFPAY ==
--- NOTE | ~2022-12-10 | US_ITS ---
EXAMINATION: US RETROPERITONEAL LIMITED (RENAL ONLY) CLINICAL INFORMATION: Calculus of kidney. COMPARISON: CT abdomen and pelvis without contrast 04/19/2022. Ultrasound retroperitoneal limited 11/08/2021 and 12/08/2020. TECHNIQUE: Real-time imaging of the kidneys. Limited visualization due to bowel gas. FINDINGS: RIGHT KIDNEY: 13.7 x 6.0 x 6.8 cm (SAG x AP x TRV). No hydronephrosis. No renal calculi. Renal cortical thickness is normal. Limited visualization. Right renal midpole 1.0 x 1.0 x 0.7 cm echogenic cortical lesion measured 0.[address] scan of 04/19/2022, 1.1 cm ultrasound of 11/10/2021 and has characteristics suggestive of an angiomyolipoma. LEFT KIDNEY: 13.2 x 5.5 x 8.0 cm (SAG x AP x TRV). No hydronephrosis. No renal calculi. Renal cortical thickness is normal. Limited visualization. US/US renal BI IMPRESSION: 1. No hydronephrosis. No renal calculi. 2. Stable right renal 1.0 cm mid pole echogenic lesion likely representing an angiomyolipoma.
== END 2022-12-10 10:38 | disposition home or self-care (01) ==
LOC: HO.HMGCX 10:37
PROVIDERS: PCP Internal Medicine; Visit Provider Urology
DX: N20.0 Calculus of kidney (principal)
CPT/HCPCS: 76775

== ENCOUNTER 2024-11-25 08:02 | Emergency (ER) | payer OTHER, SELFPAY ==
[2024-11-25 08:24] VITALS: BP 147/71; PULSE 63; RESP 18; TEMP 36.7; O2SAT 96; BMI 45.7
[2024-11-25 08:43] LABS: Hematocrit 42.4 % (37.0-47.0); Hemoglobin 15.3 g/dl (12.0-16.0); Imm Gran Abs Auto 0.04 X10*3/uL (0.00-0.03); Imm Gran Pct Auto 0.4 % (0.0-0.4); Lymphocytes Absolute Auto 1.2 X10*3/uL (1.2-4.9); MANUAL DIFF FLAG NO; Mean Corpuscular HGB Conc 36.1 g/dl (31.0-35.0); Mean Corpuscular Hemoglobin 29.6 pg (27.0-33.0); Mean Corpuscular Volume 82.0 fL (80.0-98.0); NRBC Abs Auto 0.000 X10*3/uL (0.0-0.012); NRBC Pct Auto 0.0 /100WBC (0.0-0.2); Platelet Count 243 X10*3/uL (160-400); Red Blood Count 5.17 X10*6/uL (4.20-5.50); White Blood Count 10.2 X10*3/uL (4.8-10.8)
[2024-11-25 08:44] LABS: Appearance Urine Turbid; Glucose Urine UA Negative (Negative); PH 5.0 (5.0-9.0); Specific Gravity - Urine 1.025 (1.005-1.025); UMIC TRIGGER UACC YES
[2024-11-25 08:50] LABS: UPreg QC Valid YES
[2024-11-25 08:58] LABS: Anion Gap 13 (12-20); Blood Urea Nitrogen 8 mg/dL (9-16); Calcium 9.6 mg/dL (8.4-10.2); Carbon Dioxide 26 mmol/L (22-29); Chloride 104 mmol/L (96-108); Creatinine Clr Calc Pharmacy 195.4; Estimated Glomerular Filt Rate > 60; Potassium 3.4 mmol/L (3.3-5.1); Sodium 140 mmol/L (135-145)
--- NOTE | 2024-11-25 09:13 | ED_ITS ---
HPI - Nausea/Vomiting/Diarrhea General Chief complaint: Nausea/Vomiting/Diarrhea Stated complaint: V/D since 4 am, body/headaches, cramping Time Seen by Provider: 11/25/24 10:46 Source: patient and old records reviewed Mode of arrival: ambulatory Limitations: no limitations History of Present Illness ED Provider: SUZY HPI Narrative: 39 yo female with PMH of kidney stones here with c/o abrupt onset at 3am of lower abdominal pain nonbloody stools, n/v/d. No fevers. No recent food exposures, sick contacts, travel, abx use. She tried pepto bismol but she just threw it up. She notes everything started abruptly at once. MD elicited complaint: nausea and vomiting Onset (ago): hour(s) (3am today) Description of vomiting: watery Description of diarrhea: watery Associated nausea: Yes Associated abdominal pain: Yes Location of pain: suprapubic Pain consistency: intermittent Severity: mild Quality: aching Exacerbating factors: vomiting Relieving factors: none Associated symptoms: loss of appetite, malaise and nausea/vomiting Treatment prior to arrival: other OTC medicine Related Data Home Medications ?Medication ?Instructions ?Recorded ?Confirmed clotrimazole-betamethasone 1 appl topical BID 06/14/20 %-0.05 % topical cream hydroxyzine HCl 25 mg tablet 25 mg PO BID 12/20/20 sertraline 100 mg tablet 100 mg PO DAILY 12/20/20 levonorgestrel (Mirena) intrauterine 01/24/21 duloxetine 30 mg capsule,delayed 0 mg PO 12/18/21 release Previous Rx's ?Medication ?Instructions ?Recorded ibuprofen 600 mg tablet 600 mg PO Q8H PRN fever or p ain 05/04/20 #20 tabs qaqmoyvsnq-agumhxhmvqqoe-[id number] 1 tab PO Q6H PRN dayo n #20 tabs 10/21/20 50 mg-325 mg-40 mg tablet cyclobenzaprine 10 mg tablet 10 mg PO TID PRN muscle s pasm #14 10/21/20 tabs ondansetron 4 mg disintegrating 4 mg PO Q8H PRN nausea and 10/21/20 tablet vomiting #20 tabs pyridoxine (vitamin B6) 100 mg 100 mg PO DAILY 90 days #90 tabs 03/13/22 tablet ondansetron 4 mg disintegrating 4 mg PO Q8H PRN nausea and 11/25/24 tablet vomiting #20 tabs Allergies Allergy/AdvReac Type Severity Reaction Status Date / Time No Known Allergies Allergy Verified 11/25/24 08:25 Review of Systems 2 Review of Systems: Constitutional : No Weight loss, No Fever, No Chills ENT/Mouth : No sore throat, No Rhinorrhea Eyes: No Swelling, No Redness Cardiovascular : No Chest Pain, No SOB, NoEdema Respiratory : No Cough, No Sputum, No Wheezing Gastrointestinal : Positive Nausea, Positive Vomiting, positive Diarrhea, positive abdominal Pain, No Hematochezia, No Melena Genitourinary : No Dysuria, No Urinary Frequency, No Hematuria, No Urgency Musculoskeletal : No joint pain, No Myalgias, No Joint Swelling Skin : No Skin Lesions, No rash Neuro : No Weakness, No Numbness, No Dizziness, No Headache All other systems reviewed and are negative. Yes all other systems are reviewed and are negative Gastrointestinal: Gastrointestinal: Reports nausea PMFSH Past Medical History Attestation statement: The following information was validated with the patient. Source: old records reviewed Medical History Seasonal allergies Anxiety Nephrolithiasis Surgical History History of surgery History of cholecystectomy Social History Social History Alcohol intake: current Alcohol intake frequency: holidays/special occasions only Patient Tobacco Use Status: Never used Tobacco Substance Use Type: Marijuana Gender identity: Female Physical Exam 2 Vital Signs: Vital Signs: Last Vital Signs Temp 98.0 F 11/25/24 11:01 Pulse 63 11/25/24 11:01 Resp 18 11/25/24 11:01 BP 147/71 H 11/25/24 11:01 Pulse Ox 96 11/25/24 11:01 O2 Del Method Room Air 11/25/24 11:01 BMI result Body Mass Index 45.7 Appearance: Alert. Oriented X3. No acute distress. Eyes: Pupils equal, round and reactive to light. ENT: Pharynx normal. Neck: Normal inspection. Neck supple. CVS: Normal heart rate and rhythm. Pulses normal. Respiratory: No respiratory distress. Breath sounds normal. Abdomen: Soft and mild lower abdominal ttp no rebound or guarding Skin: Skin warm and dry. Normal skin color. Extremities: No lower extremity edema. Neuro: Oriented X 3. No motor deficit. No sensory deficit. Course Course Course Narrative: 39 yo female with PMH of kidney stones here with c/o lower abdominal pain n/v/d. She woke up with symptoms at 3am. All symptoms started at the same time. No fevers, no bloody stools. No recent abx in last month. No abnormal food exposures. No sick contacts at home. She has not traveled anywher. At this time labs, ODT zofran. Possible viral illness given abrupt onset. this is a RAPID medical screening exam the rest of the history and physical exam is to be done by the main provider. SUZY 11/25/24 Reevaluation(s) Reevaluation #1: after meds repeat exam normal no pain on exam and tolerating PO SUZY 11/25/24 Medications Administered Discontinued Medications Generic Name Dose Route Start Last Admin Trade Name Adán PRN Reason Stop Dose Admin Ketorolac Tromethamine 30 mg 11/25/24 09:15 11/25/24 09:18 Ketorolac Tromethamine 30 Mg/Ml Vial IM 11/25/24 09:16 30 mg ONCE ONE Administration Ondansetron HCl 4 mg 11/25/24 08:26 11/25/24 08:28 Ondansetron Odt 4 Mg Tab.Rapdis TRANSLINGU 11/25/24 08:27 4 mg ONCE ONE Administration Medical Decision Making Medical Decision Making [facility] Narrative: 39 yo female with PMH of kidney stones here with c/o abrupt onset n/v/d and lower abdominal cramps across entire lower abdomen. She has no fevers, no blood stools. She has no risk factors and has a normal immune status. She is well hydrated and not toxic looking. She has no localized pain in RUQ or RLQ to suggest biliary disease or appendicitis. I have ordered zofran and toradol and will reassess. Differential Diagnosis Differential Diagnoses: The differential diagnosis associated with the presentation includes colitis, diarrhea, viral syndrome Admission/Observation Consideration of admission/observation: Escalation of care including admission/observation considered feels much better, labs reassuring, mild bump in bili but has not had any RUQ pain and has neg ureña's could be due to vomiting Lab Data [facility] Lab Attestation statement: I reviewed the patient's lab results. 11/25/24 08:37 11/25/24 08:37 Labs: Lab Results 11/25/24 Range/Units 08:37 WBC 10.2 (4.8-10.8) X10*3/uL RBC 5.17 (4.20-5.50) X10*6/uL Hgb 15.3 (12.0-16.0) g/dl Hct 42.4 (37.0-47.0) % MCV 82.0 (80.0-98.0) fL MCH 29.6 (27.0-33.0) pg MCHC 36.1 H (31.0-35.0) g/dl RDW 12.1 (11.0-16.0) % Plt Count 243 (160-400) X10*3/uL MPV 10.6 (9.4-12.3) fL Immature Gran % (Auto) 0.4 (0.0-0.4) % Neut % (Auto) 83.3 H (45-73) % Lymph % (Auto) 11.3 L (20-40) % Swift % (Auto) 4.1 (2-11) % Eos % (Auto) 0.5 (0-4) % Baso % (Auto) 0.4 (0-2) % Lymph # (Auto) 1.2 (1.2-4.9) X10*3/uL Swift # (Auto) 0.4 (0.1-1.2) X10*3/uL Eos # (Auto) 0.1 (0.0-0.4) X10*3/uL Baso # (Auto) 0.0 (0.0-0.2) X10*3/uL Abs Immat Gran (auto) 0.04 H (0.00-0.03) X10*3/uL Absolute Neuts (auto) 8.5 H (2.0-8.3) x10*3/uL Absolute Nucleated RBC 0.000 (0.0-0.012) X10*3/uL Nucleated RBC % (auto) 0.0 (0.0-0.2) /100WBC Sodium 140 (135-145) mmol/L Potassium 3.4 (3.3-5.1) mmol/L Chloride 104 (96-108) mmol/L Carbon Dioxide 26 (22-29) mmol/L Anion Gap 13 (12-20) BUN 8 L (9-16) mg/dL Creatinine 0.46 L (0.5-1.4) mg/dL Estim Creat Clear Calc 195.4 Estimated GFR > 60 Random Glucose 139 H (60-115) mg/dL Calcium 9.6 D (8.4-10.2) mg/dL Total Bilirubin 1.9 H (0.0-1.0) mg/dL Direct Bilirubin 0.6 H (0.0-0.5) mg/dL AST 30 (5-31) U/L ALT 44 H (0-31) U/L Alkaline Phosphatase 46 (39-117) U/L Total Protein 7.2 (6.5-8.0) g/dL Albumin 4.8 (3.5-5.0) g/dL Triglycerides 76 (<150) mg/dL Cholesterol 173 (<200) mg/dL LDL Cholesterol, Calc 109 H (<100) mg/dL HDL Cholesterol 49 (>40) mg/dL Lipase 31 (8-78) U/L Urine Color Dark Yellow Urine Appearance Turbid Urine pH 5.0 (5.0-9.0) Ur Specific [employer] 1.025 (1.005-1.025) Urine Protein Trace (Neg-Trace) mg/dL Urine Glucose (UA) Negative (Negative) mg/dL Urine Ketones 40 (Negative) mg/dL Urine Blood Negative (Negative) Urine Nitrite Negative (Negative) Ur Leukocyte Esterase Trace H (Negative) Urine RBC 0-2 (0-2) /HPF Urine WBC 0-5 (0-5) /HPF Ur Squamous Epith Cells 11-20 (0-2) /HPF Urine Bacteria Trace (None Seen) Hyaline Casts 0-2 (0-2) /LPF Urine Test NEGATIVE (NEGATIVE) Influenza Type A (PCR) NEGATIVE (Negative) Influenza Type B (PCR) NEGATIVE (Negative) RSV RNA Qual (PCR) NEGATIVE (Negative) SARS-CoV-2 RNA (RT-PCR) NEGATIVE (Negative) External Record Review External record reviewed: Outpatient record Tests considered The following testing was considered but not selected: CT scan but her work up was reassuring and pain resolved. Prescription Management I considered prescription management with: Pain Medication and Other Discharge Plan Discharge Clinical Impression: Nausea & vomiting Qualifiers: Vomiting type: unspecified Qualified Code(s): R11.2 - Nausea with vomiting, unspecified Patient Disposition: Home, Self-Care Instructions: Acute Nausea and Vomiting (ED) Additional Instructions: your labs were reassuring including blood counts, pancreas, kidneys, electrolytes and liver panel testing at baseline - you have chronic mild elevation in liver markers likely due to fatty liver your cholesterol total number was normal but your LDL was slightly high please cut down saturated fats, fried foods, fast foods - recheck with primary care doctor in 1 month return for worsening pain, fevers over 100.4, bloody stools, pain that worsens or changes and moves to the right upper abdomen or right lower abdomen or any other concerns liquids and bland diet for 48 hours Prescriptions: New ondansetron 4 mg tablet,disintegrating 4 mg PO Q8H PRN (Reason: nausea and vomiting) Qty: 20 0RF No Action pyridoxine (vitamin B6) 100 mg tablet 100 mg PO DAILY 90 Days Qty: 90 2RF ibuprofen 600 mg tablet 600 mg PO Q8H PRN (Reason: fever or pain) Qty: 20 0RF cyclobenzaprine 10 mg tablet 10 mg PO TID PRN (Reason: muscle spasm) Qty: 14 0RF ipuipwgubf-qwmnzckylxxov-phmw 50-325-40 mg tablet 1 tab PO Q6H PRN (Reason: pain) Qty: 20 0RF ondansetron 4 mg tablet,disintegrating 4 mg PO Q8H PRN (Reason: nausea and vomiting) Qty: 20 0RF hydroxyzine HCl 25 mg tablet 25 mg PO BID sertraline 100 mg tablet 100 mg PO DAILY clotrimazole-betamethasone 1-0.05 % cream topical BID duloxetine 30 mg capsule,delayed release(DR/EC) 0 mg PO Mirena 20 mcg/24 hours (7 yrs) 52 mg intrauterine device intrauterine Stand Alone Forms: Work/School Release Discharge Date/Time: 11/25/24 10:57 Print Language: Setswana
[2024-11-25 09:23] LABS: Resp Syncy Virus RNA Qual PCR NEGATIVE (Negative); SARS COV2 PCR INHOUSE NEGATIVE (Negative)
[2024-11-25 09:31] LABS: Cholesterol 173 mg/dL (<200); HDL Cholesterol 49 mg/dL (>40); Lipase 31 U/L (8-78); Triglycerides 76 mg/dL (<150)
[2024-11-25 10:01] LABS: Alanine Aminotransferase 44 U/L (0-31); Albumin Level 4.8 g/dL (3.5-5.0); Alkaline Phosphatase 46 U/L (39-117); Aspartate Amino Transferase 30 U/L (5-31); Total Protein 7.2 g/dL (6.5-8.0)
[2024-11-25 11:01] VITALS: BP 147/71; PULSE 63; RESP 18; TEMP 36.7; O2SAT 96
--- OUTSIDE RECORDS SUMMARY | 2024-11-25 13:33 | XMS_ITS | Clinical Summary ---
Author Organization [address] Address [address] [place] [address] Phone Care Team Providers Care Staff Research Associate Name Role Phone Cecily May MD Primary Care Provider [phone] Allergies No known active allergies Medications ibuprofen (ADVIL,MOTRIN) 800 mg tablet TAKE 1 TABLET BY MOUTH EVERY 8 HOURS NEEDED FOR PAIN FOR UP TO 30 DAYS. 3 Active levonorgestreL (Mirena) 21 mcg/24 hr (8 yrs) 52 mg IUD by Intrauterine route continuous. 9 Active multivitamin (MULTIPLE VITAMINS ORAL) Take 1 Each by mouth daily. Active losartan (COZAAR) 25 mg tablet Take 1 tablet (25 mg total) by mouth 1 (one) time each day. 90 each 1 5 Active meloxicam (MOBIC) 7.5 mg tabletIndicatio ns:Pain in both wrists,Bilatera l hand swelling,Bilate ral hand pain Take 1 tablet by mouth once daily 30 tablet 5 Active melatonin 1 mg tablet,disinteg rating Take 1 each by mouth at bedtime. 30 tablet 5 Active hydrOXYzine HCL (ATARAX) 25 mg tablet Take 1 tablet (25 mg total) by mouth every 6 (six) hours. 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 [address] [place] [address] Panic attack (Primary Dx); Chest pain, unspecified type Discharge Disposition: Home or Self Care 08/28/2024 Telephone Orthopedics [address] [phone] Priscila Miller MA from Last 3 Months Immunizations Immunization Administration Dates Next Due Influenza Quadravalent, MDCK , 0.5ml, preservative free (Flucelvax) 6mo and older 12/13/2022,11/24/2019 Influenza trivalent, MDCK, 0 .5mL, preservative free (Flucelvax) 6mo and older 01/08/2024 Influenza trivalent, with pr eservative (Fluzone; Afluria) 6mo and older 10/22/2018,10/23/2017 Influenza, Unspecified 11/02/2021,11/11/2016 Moderna (age 6mo & older) Bi valjeremiah, COVID-19, 0.5 mL or 0.25 mL dosage 01/02/2022 Tdap Tetanus diptheria acell ular pertussis (Boostrix; Adacel) 7yo and older 01/08/2024,09/29/2013 Surgical History Surgery Date Site/Laterality Comments CHOLECYSTECTOMY Medical History Medical History Date Comments Gestational diabetes Morbid obesity ([facility] V24, [facility] V28) 2015 Elevated LFTs Fatty liver Hirsutism Positive test for herpes simplex virus (HSV) ant ibody 06/2018 Type 1 & 2 in serum Kidney stones 04/2020 Hypertension 11/28/2022 Prediabetes Family History Medical History Relation Name Comments Obesity Brother x 1 Other: accidental Father Diabetes Maternal Grandmother hyperli pidemia, htn Hypertension Mother hyperthyroidism Other: accidental Sister Relation Name Status Comments Brother x 1 Alive Father Maternal Grandfather Maternal Grandmother Mother Alive Paternal Grandfather Paternal Grandmother Sister Social History Tobacco Use Types Packs/Day Years Used Date Smoking Tobacco: Never Smokeless Tobacco: Never Tobacco Cessation:Counseling Given: Not Answered Alcohol Use Standard Drinks/Week Comments Yes 0 (1 standard drink = 0.6 oz pur e alcohol) Housing Instability Answer Date Recorde d Are you worried that in the next 2 months you may not have stable housing? No 12/29/2023 Food Access & Nutrition Answer Date Rec orded Do you have access to a vari ety of food including fruits and vegetables? Yes 12/29/2023 Health Literacy Answer Date Recorded How often do you need to hav e someone help you when you read instructions, pamphlets, or other written material from your doctor or pharmacy? Never 12/29/2023 Caregiver: How often do you need to have someone help you when you read instructions, pamphlets, or other written material from your doctor or pharmacy? Not on file 12/29/2023 Financial Risk Answer Date Recorded How hard is it for you to pa y for the very basics like food, housing, medical care, and air conditioning / heating? Not very hard 12/29/2023 Transportation Answer Date Recorded Has the lack of transportati on kept you from meetings, work, or from getting things needed for daily living? No Has the lack of transportati on kept you from medical appointments or from getting medications? No 12/29/2023 Social Isolation Answer Date Recorded How often do you feel lonely or isolated from th ose around you? Rarely 12/29/2023 Food Risk Answer Date Recorded Within the past 12 months we worried whether our food would run out before we got money to buy more. Never true 12/29/2023 Within the past 12 months th e food we bought just didn't last and we didn't have money to get more. Never true 12/29/2023 Dependent Care Answer Date Recorded Do you need help finding or paying for care for your loved ones. For example, child custody evaluator or elderly care for an older adult? No 12/29/2023 Education Answer Date Recorded Do you think completing more education or training, like finishing a GED, going to college, or learning a trade, would be helpful for you? No 12/29/2023 Employment and Income Answer Date Recor ded During the last four weeks, have you been actively looking for work? No 12/29/2023 Living Situation Answer Date Recorded What is your living situation? Unrecognized valu e 12/29/2023 Comments No Sex and Gender Information Value Date Recorded Sex Assigned at Female 05/06/2024 9:56 AM EDT Legal Sex Female 5:37 AM EST Gender Identity Female 05/06/2024 9:56 AM EDT Sexual Orientation Not on file Obstetrics History Last Filed Vital Signs Vital Sign Reading Time Taken Comments Blood Pressure 120/74 09/18/2024 10:47 AM EDT Pulse 89 09/18/2024 10:47 AM EDT Temperature 36.2 C (97.1 F) 09/18/2024 10:47 AM EDT Respiratory Rate 16 09/18/2024 10:47 AM EDT Oxygen Saturation 99% 09/18/2024 10:47 AM EDT Inhaled Oxygen Concentration - - Weight 112 kg (246 lb 1.6 oz) 09/18/2024 10:47 A M EDT Height 157.5 cm (5' 2 ) 09/18/2024 10:47 AM EDT Body Mass Index 45.01 09/18/2024 10:47 AM EDT Plan of Treatment Upcoming Encounters Date Type Department Care Team (Late st Contact Info) Description 03/25/2025 1:00 PM EST Office Visit Adult Medicine [address] [phone] Cecily May MD [address] [place], [place] Health Maintenance Due Date Last Done Comments Hepatitis B Vaccines (1 of 3 - 19+ 3-dose series) 2004 HPV Vaccines (1 - 3-dose SCDM series) 2012 COVID-19 Vaccine ( season) 2024 01/02/2022, 03/02/2021, 03/11/2020, Additional history exists Influenza Vaccine (#1) 2024 , 12/13/2022, 11/02/2021, Additional history exists Social Influencers of Health Screening 12/28/2024 12/29/2023 Hypertension/CHF/CAD Annual BMP Blood Test 09/18/2025 09/18/2024, 09/16/2024, 01/24/2024, Additional history exists Cervical Cancer Screening: HPV 10/16/2028 10/17/2023 Cholesterol Screening (Lipid Panel) 01/23/2029 01/24/2024, 10/18/2020 DTaP,Tdap,and Td Vaccines (3 - Td or Tdap) 01/07/2034 01/08/2024, 09/29/2013 RSV Immunization Adult Patients (1 - 1-dose 75+ series) 2060 HIV Screening Completed 09/07/2022 Hepatitis C Screening Completed 09/07/2022 Depression Screening Completed 05/06/2024 HIB Vaccines Aged Out No longer eligi ble based on patient's age to complete this topic Hepatitis A Vaccines Aged Out No long er eligible based on patient's age to complete this topic IPV Vaccines Aged Out No longer eligi ble based on patient's age to complete this topic MMR Vaccines Aged Out No longer eligi ble based on patient's age to complete this topic Meningococcal ACWY Vaccine Aged Out N o longer eligible based on patient's age to complete this topic Meningococcal B Vaccine Aged Out No l onger eligible based on patient's age to complete this topic Pneumococcal Vaccine: Pediatrics (0 to 5 Years) and At-Risk Patients (6 to 49 Years) Aged Out No longer eligible based on patient's age to complete this topic RSV Immunization Patients Under 20 months Aged Out No longer eligible based on patient's age to complete this topic Varicella Vaccines Aged Out No longer eligible based on patient's age to complete this topic Procedures Procedure Name Priority Date/Time Associated Diagnosis Comments BASIC METABOLIC PANEL Routine 09/18/2024 11:15 AM EDT Hypokalemia Primary hypertension HEMOGLOBIN A1C Routine 09/18/2024 11:15 AM EDT Prediabetes ECG ANNOTATED 09/17/2024 XR CHEST 2 VIEWS STAT 09/16/2024 8:52 PM EDT ECG 12-LEAD STAT 09/16/2024 8:45 PM EDT TROPONIN I HIGH SENSITIVITY Timed 09/16/2024 8:42 PM EDT POC , URINE DIAGNOSTIC STAT 09/16/2024 8:31 PM EDT ECG 12-LEAD STAT 09/16/2024 7:29 PM EDT CBC WITH AUTO DIFFERENTIAL STAT 09/16/2024 7:23 PM EDT B-TYPE NATRIURETIC PEPTIDE STAT 09/16/2024 7:23 PM EDT MAGNESIUM STAT 09/16/2024 7:23 PM EDT LIPASE STAT 09/16/2024 7:23 PM EDT COMPREHENSIVE METABOLIC PANEL STAT 09/16/2024 7:23 PM EDT CBC AND DIFFERENTIAL STAT 09/16/2024 7:23 PM EDT TROPONIN I HIGH SENSITIVITY Timed 09/16/2024 7:23 PM EDT LIPID PANEL WITH REFLEX TO DIRECT LDL Routine 01/24/2024 8:50 AM EST Hypertension, unspecified type HPV Routine 10/17/2023 HEPATITIS C SCREENING Routine 09/07/2022 HIV SCREENING Routine 09/07/2022 from Last 3 Months or Most Recently Relevant to Health Maintenance Results * Hemoglobin A1c (09/18/2024 11:15 AM EDT) Pathologist [facility] Hemoglobin A1C 5.9 <6.5 % LAB CHEMISTRY METHOD 09/18/2024 1:56 PM EDT [facility] Mean Bld Glu Estim. 123 mg/dL LAB CHEMISTRY METHOD 09/18/2024 1:56 PM EDT [facility] Blood Venous blood specimen / Unknown Venipuncture / Unknown 09/18/2024 11:15 AM EDT 09/18/2024 11:15 AM EDT us Cecily May MD LAB BLOOD ORDERABLES Final Resul t [facility] [address] [place] [address], * (ABNORMAL) Basic metabolic panel (09/18/2024 11:15 AM EDT) Pathologist [facility] Sodium 139 133 - 145 mmol/L LAB CHEMISTRY METHOD 09/18/2024 3:19 PM EDT [facility] Potassium 3.3(L) 3.5 - 5.5 mmol/L LAB CHEMISTRY METHOD 09/18/2024 3:19 PM EDT [facility] Chloride 102 96 - 110 mmol/L LAB CHEMISTRY METHOD 09/18/2024 3:19 PM EDT [facility] CO2 29 21 - 32 mmol/L LAB CHEMISTRY METHOD 09/18/2024 3:19 PM EDT [facility] Anion Gap 8 3 - 11 LAB CHEMISTRY METHOD 09/18/2024 3:19 PM EDT [facility] Glucose 139(H) 70 - 100 mg/dL LAB CHEMISTRY METHOD 09/18/2024 3:19 PM EDT [facility] BUN 12 5 - 25 mg/dL LAB CHEMISTRY METHOD 09/18/2024 3:19 PM EDT [facility] Creatinine 0.51 0.50 - 1.10 mg/dL LAB CHEMISTRY METHOD 09/18/2024 3:19 PM EDT [facility] eGFR 122 >=60 mL/min/1. 73m2 LAB CHEMISTRY METHOD 09/18/2024 3:19 PM EDT [facility] Comment:Calculation based on the Chronic Kidney Disease Epidemiology Collaboration (CKD-EPI) equation refit without adjustment for race. BUN/Creatinine Ratio 23.5 LAB CHEMISTRY METHOD 09/18/2024 3:19 PM EDT [facility] Calcium 8.8 8.5 - 10.5 mg/dL LAB CHEMISTRY METHOD 09/18/2024 3:19 PM EDT [facility] Blood Venous blood specimen / Unknown Venipuncture / Unknown 09/18/2024 11:15 AM EDT 09/18/2024 11:15 AM EDT us Cecily May MD LAB BLOOD ORDERABLES Final Resul t [facility] [address] [place] [address], * ECG-Annotated (09/17/2024) us Provider Onbase ECG ORDERABLES Final Result * XR Chest 2 Views (09/16/2024 8:52 PM EDT) Anatomical Region Laterality Modality Body Radiographic Velia ging 09/17/2024 8:01 AM EDT Impressions 09/17/2024 8:01 AM EDT Normal chest radiographs. -------- FINAL REPORT -------- Dictated By: Walker Rios Dictated Date: 09/17/2024 08:01 ET Assigned Physician: Walker Rios Reviewed and Electronically Signed By: Walker Rios Signed Date: 09/17/2024 08:01 ET Workstation ID: [id number] Transcribed By: Self Edit Transcribed Date: 09/17/2024 08:01 ET Narrative 09/17/2024 8:01 AM EDT PROCEDURE: PA and lateral radiographs of the chest. HISTORY: chest pain. COMPARISON: None. FINDINGS: The heart, mediastinum, lungs, pleural spaces, and bony thorax are normal. Procedure Note Walker Rios MD - 09/17/2024 PROCEDURE: PA and lateral radiographs of the chest. HISTORY: chest pain. COMPARISON: None. FINDINGS: The heart, mediastinum, lungs, pleural spaces, and bony thorax arenormal. IMPRESSION: Normal chest radiographs. -------- FINAL REPORT -------- Dictated By: Walker Rios Dictated Date: 09/17/2024 08:01 ET Assigned Physician: Walker Rios Reviewed and Electronically Signed By: Walker Rios Signed Date: 09/17/2024 08:01 ET Workstation ID: [id number] Transcribed By: Self Edit Transcribed Date: 09/17/2024 08:01 ET us Vinny Morgan MD IMG XR PROCEDURES Final Result * ECG 12 lead (09/16/2024 8:45 PM EDT) Only the most recent of2 resultswithin the time period is included. Ventricular Rate ECG 65 BPM GEMUSE Atrial Rate 65 BPM GEMUSE P-R Interval 152 ms GEMUSE QRS Duration 84 ms GEMUSE Q-T Interval 376 ms GEMUSE QTc 391 ms GEMUSE P Wave [place] 39 degrees GEMUSE R [place] -3 degrees GEMUSE T [place] -64 degrees GEMUSE ECG Interpretation Normal sinus rhythm T wave abnormality, consider inferior ischemia T wave abnormality, consider anterolateral ischemia Abnormal ECG When compared with ECG of 16-SEP-2024 19:29, (unconfirmed) T wave inversion now evident in Lateral leads Confirmed by Abdullahi SERRANO JOHN ([id number]) on 09/17/2024 4:45:43 PM GEMUSE 09/16/2024 8:45 PM EDT 09/17/2024 4:45 PM EDT Vinny Morgan MD ECG ORDERABLES Final Result Performing Organization Address City/[facility] de Phone Number GEMUSE * Troponin I high sensitivity (09/16/2024 8:42 PM EDT) Only the most recent of2 resultswithin the time period is included. [facility] High Sensitivity Troponin I 40 <=54 ng/L LAB CHEMISTRY METHOD 09/16/2024 9:26 PM EDT [facility] Blood Venous blood specimen / Unknown Venipuncture / Unknown 09/16/2024 8:42 PM EDT 09/16/2024 8:50 PM EDT Narrative [facility] - 09/16/2024 9:26 PM EDT High levels of biotin in samples may falsely decrease hsTroponin values. Use caution when interpreting hsTroponin results in patients taking biotin who exhibit renal impairment (eGFR <60) or in patients taking more than 20 mg/day of biotin. Vinny Morgan MD LAB BLOOD ORDERABLES Final Res ult Performing Organization Address [facility] Co de Phone Number [facility] [address] [place] [address], [place] [phone] * POC , urine manually resulted (09/16/2024 8:31 PM EDT) [facility] HCG, Ur POC Negative Negative POC hCG Int QC Pass? Yes Yes Urine Urine specimen obtained by clean catch procedure / Unknown 09/16/2024 8:31 PM EDT Vinny Morgan MD POINT OF CARE TEST ENTER/EDIT ORDERABLES Final Result * CBC auto differential (09/16/2024 7:23 PM EDT) [facility] WBC 8.3 4.8 - 10.8 K/mcL LAB HEMETOLOGY METHOD 09/16/2024 8:06 PM [facility] RBC 4.80 3.80 - 4.80 M/mcL LAB HEMETOLOGY METHOD 09/16/2024 8:06 PM [facility] Hemoglobin 14.0 11.5 - 16.0 g/dL LAB HEMETOLOGY METHOD 09/16/2024 8:06 PM [facility] Hematocrit 40.0 35.0 - 47.0 % LAB HEMETOLOGY METHOD 09/16/2024 8:06 PM [facility] MCV 82.8 79.0 - 98.0 FL LAB HEMETOLOGY METHOD 09/16/2024 8:06 PM [facility] MCH 29.0 27.0 - 32.0 pcg LAB HEMETOLOGY METHOD 09/16/2024 8:06 PM [facility] MCHC 35.0 32.0 - 37.0 g/dL LAB HEMETOLOGY METHOD 09/16/2024 8:06 PM [facility] RDW 12.2 11.0 - 15.0 % LAB HEMETOLOGY METHOD 09/16/2024 8:06 PM [facility] Platelets 212 130 - 400 K/mcL LAB HEMETOLOGY METHOD 09/16/2024 8:06 PM [facility] MPV 10.8 7.0 - 11.0 FL LAB HEMETOLOGY METHOD 09/16/2024 8:06 PM [facility] NRBC 0.0 <1.0 % LAB HEMETOLOGY METHOD 09/16/2024 8:06 PM [facility] NRBC Absolute 0.00 <0.10 K/mcL LAB HEMETOLOGY METHOD 09/16/2024 8:06 PM [facility] Neutrophils Relative 57.1 % LAB HEMETOLOGY METHOD 09/16/2024 8:06 PM [facility] Lymphocytes Relative 31.4 % LAB HEMETOLOGY METHOD 09/16/2024 8:06 PM [facility] Monocytes Relative 8.5 % LAB HEMETOLOGY METHOD 09/16/2024 8:06 PM [facility] Eosinophils Relative 2.3 % LAB HEMETOLOGY METHOD 09/16/2024 8:06 PM [facility] Basophils Relative 0.5 % LAB HEMETOLOGY METHOD 09/16/2024 8:06 PM [facility] Immature Granulocytes Relative 0.2 % LAB HEMETOLOGY METHOD 09/16/2024 8:06 PM [facility] Neutrophils Absolute 4.72 1.50 - 7.00 K/mcL LAB HEMETOLOGY METHOD 09/16/2024 8:06 PM [facility] Lymphocytes Absolute 2.60 1.00 - 5.00 K/mcL LAB HEMETOLOGY METHOD 09/16/2024 8:06 PM [facility] Monocytes Absolute 0.70 0.20 - 1.00 K/mcL LAB HEMETOLOGY METHOD 09/16/2024 8:06 PM [facility] Eosinophils Absolute 0.19 0.00 - 0.50 K/mcL LAB HEMETOLOGY METHOD 09/16/2024 8:06 PM [facility] Basophils Absolute 0.04 0.00 - 0.20 K/mcL LAB HEMETOLOGY METHOD 09/16/2024 8:06 PM [facility] Immature Granulocytes Absolute 0.02 0.00 - 0.03 K/mcL LAB HEMETOLOGY METHOD 09/16/2024 8:06 PM EDT [facility] Blood Venous blood specimen / Unknown Venipuncture / Unknown 09/16/2024 7:23 PM EDT 09/16/2024 7:57 PM EDT us Vinny Morgan MD LAB BLOOD ORDERABLES Final Res ult Performing Organization Address City/[facility]/ZIP Co de Phone Number [facility] [address] [place] [address], [place] [phone] * B-type natriuretic peptide (09/16/2024 7:23 PM EDT) BNP 34 <=100 pcg/mL LAB CHEMISTRY METHOD 09/16/2024 8:30 PM EDT [facility] Blood Venous blood specimen / Unknown Venipuncture / Unknown 09/16/2024 7:23 PM EDT 09/16/2024 7:57 PM EDT us Vinny Morgan MD LAB BLOOD ORDERABLES Final Res ult Performing Organization Address [facility]/ZIP Co de Phone Number [facility] [address] [place] [address], [place] [phone] * Magnesium (09/16/2024 7:23 PM EDT) Magnesium 1.9 1.9 - 2.6 mg/dL LAB CHEMISTRY METHOD 09/16/2024 8:24 PM EDT [facility] Blood Venous blood specimen / Unknown Venipuncture / Unknown 09/16/2024 7:23 PM EDT 09/16/2024 7:57 PM EDT us Vinny Morgan MD LAB BLOOD ORDERABLES Final Res ult [facility] [address] [place] [address], [place] [phone] * Lipase (09/16/2024 7:23 PM EDT) Pathologist [facility] Lipase 72 13 - 75 unit/L LAB CHEMISTRY METHOD 09/16/2024 8:24 PM [facility] Blood Venous blood specimen / Unknown Venipuncture / Unknown 09/16/2024 7:23 PM EDT 09/16/2024 7:57 PM EDT us Vinny Morgan MD LAB BLOOD ORDERABLES Final Res ult [facility] [address] [place] [address], [place] [phone] * (ABNORMAL) Comprehensive metabolic panel (09/16/2024 7:23 PM EDT) [facility] Sodium 137 133 - 145 mmol/L LAB CHEMISTRY METHOD 09/16/2024 8:25 PM [facility] Potassium 3.0(L) 3.5 - 5.5 mmol/L LAB CHEMISTRY METHOD 09/16/2024 8:25 PM [facility] Chloride 101 96 - 110 mmol/L LAB CHEMISTRY METHOD 09/16/2024 8:25 PM [facility] CO2 29 21 - 32 mmol/L LAB CHEMISTRY METHOD 09/16/2024 8:25 PM [facility] Anion Gap 7 3 - 11 LAB CHEMISTRY METHOD 09/16/2024 8:25 PM [facility] Glucose 132(H) 70 - 100 mg/dL LAB CHEMISTRY METHOD 09/16/2024 8:25 PM [facility] BUN 10 5 - 25 mg/dL LAB CHEMISTRY METHOD 09/16/2024 8:25 PM [facility] Creatinine 0.74 0.50 - 1.10 mg/dL LAB CHEMISTRY METHOD 09/16/2024 8:25 PM [facility] eGFR 106 >=60 mL/min/1. 73m2 LAB CHEMISTRY METHOD 09/16/2024 8:25 PM [facility] Comment:Calculation based on the Chronic Kidney Disease Epidemiology Collaboration (CKD-EPI) equation refit without adjustment for race. BUN/Creatinine Ratio 13.5 LAB CHEMISTRY METHOD 09/16/2024 8:25 PM [facility] Calcium 9.4 8.5 - 10.5 mg/dL LAB CHEMISTRY METHOD 09/16/2024 8:25 PM [facility] AST (SGOT) 53(H) 10 - 42 unit/L LAB CHEMISTRY METHOD 09/16/2024 8:25 PM [facility] ALT (SGPT) 123(H) 10 - 60 unit/L LAB CHEMISTRY METHOD 09/16/2024 8:25 PM [facility] Alkaline Phosphatase 51 42 - 121 unit/L LAB CHEMISTRY METHOD 09/16/2024 8:25 PM [facility] Total Protein 6.9 6.0 - 8.0 g/dL LAB CHEMISTRY METHOD 09/16/2024 8:25 PM [facility] Albumin 4.1 3.2 - 5.0 g/dL LAB CHEMISTRY METHOD 09/16/2024 8:25 PM [facility] Total Bilirubin 1.6(H) 0.0 - 1.4 mg/dL LAB CHEMISTRY METHOD 09/16/2024 8:25 PM [facility] Blood Venous blood specimen / Unknown Venipuncture / Unknown 09/16/2024 7:23 PM EDT 09/16/2024 7:57 PM EDT us Vinny Morgan MD LAB BLOOD ORDERABLES Final Res ult [facility] [address] [place] [address], [place] [phone] * Lipid panel with reflex to direct LDL (01/24/2024 8:50 AM EST) Cholesterol 160 0 - 200 mg/dL LAB CHEMISTRY METHOD 01/24/2024 1:47 PM EST [facility] Triglycerides 97 0 - 150 mg/dL LAB CHEMISTRY METHOD 01/24/2024 1:47 PM EST [facility] HDL 47 >=40 mg/dL LAB CHEMISTRY METHOD 01/24/2024 1:47 PM EST [facility] LDL Calculated 94 0 - 100 mg/dL LAB CHEMISTRY METHOD 01/24/2024 1:47 PM EST [facility] VLDL Cholesterol Chris 19.4 mg/dL LAB CHEMISTRY METHOD 01/24/2024 1:47 PM EST [facility] Non HDL Chol. (LDL+VLDL) 113 <145 mg/dL LAB CHEMISTRY METHOD 01/24/2024 1:47 PM EST [facility] Chol/HDL Ratio 3.4 0.0 - 4.4 LAB CHEMISTRY METHOD 01/24/2024 1:47 PM [facility] Blood Venous blood specimen / Unknown Venipuncture / Unknown 01/24/2024 8:50 AM EST 01/24/2024 8:50 AM EST Dori MCELROY LAB BLOOD ORDERABLES Final Resul t [facility] [address] [place] [address], [place] [phone] * Cervical Cancer Screening: HPV (10/17/2023) Pathologist [facility] Cervical Cancer Screening: HPV negative, abstracted Historical Provider HEALTH MAINTENANCE Final Result * HIV Screening (09/07/2022) Pathologist [facility] HIV Screening abstracted Historical Provider HEALTH MAINTENANCE Final Result * Hepatitis C Screening (09/07/2022) Hepatitis C Screening abstracted us Historical Provider HEALTH MAINTENANCE Final Result from Last 3 Months or Most Recently Relevant to Health Maintenance Insurance [facility] [facility] Care Teams Staff Research Associate Relationship Specialty Start Date End Date Cecily May MD [address] [place] [address] PCP - General Internal Medicine 04/18/20
--- OUTSIDE RECORDS SUMMARY | 2024-11-25 13:33 | XMS_ITS | Clinical Summary ---
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 12/14/2021 Active amoxicillin (Amoxil) 500 MG capsuleIndicati ons:Dental caries extending into pulp Take 1 capsule (500 mg) by mouth every 8 (eight) hours for 7 days. 21 capsule 02/01/2022 Active Social History Tobacco Use Types Packs/Day Years Used Date Smoking Tobacco: Never Smokeless Tobacco: Never Tobacco Cessation:Counseling Given: Not Answered Comments Unknown Sex and Gender Information Value Date Recorded Sex Assigned at Female 12/11/2021 10:25 AM EDT Legal Sex Female 10:25 AM EDT Gender Identity Female 12/11/2021 10:25 AM EDT Sexual Orientation Straight 12/11/2021 10 :25 AM EDT Last Filed Vital Signs Vital Sign Reading Time Taken Comments Blood Pressure 118/78 01/15/2022 11:40 AM EST Pulse - - Temperature - - Respiratory Rate - - Oxygen Saturation - - Inhaled Oxygen Concentration - - Weight - - Height - - Body Mass Index - - Plan of Treatment Health Maintenance Due Date Last Done Comments Dental Oral Exam 1985 Dental Prophylaxis 1985 Dental X-Ray: Bitewings 1985 Dental X-Ray: Full Mouth 1985 Depression Screening 1985 HIV Screening 1985 SDOH Screening 1985 Disability Screening 1985 Alcohol/Substance Use Screening 1997 Family Planning (PISQ) 2000 HPV Vaccines (1 - 3-dose series) 2000 Hepatitis C Screening 07/18/2003 Hepatitis B Vaccines (1 of 3 - 19+ 3-dose series) 2004 Pap Smear 2006 Cervical Cancer Screening 07/18/2015 HPV/Cotest 07/18/2015 Tobacco Screening 02/01/2023 02/01/2022 DTaP/Tdap/Td Vaccines (2 - Td or Tdap) 09/30/2023 09/29/2013 COVID-19 Vaccine ( - 2024- season) 2024 01/02/2022, 03/02/2021, 03/11/2020, Additional history exists Influenza Vaccine (#1) 2024 , 11/24/2019, 10/22/2018, Additional history exists Zoster Vaccines (1 of 2) 07/18/2035 RSV Patients and Patients Aged 60 years or older (1 - 1-dose 75+ series) 2060 HIB Vaccines Aged Out No longer eligi [...] patient's age to complete this topic Meningococcal Vaccine Aged Out No sudheer lucian eligible based on patient's age to complete this topic Pneumococcal Vaccine: Pediatrics (0 to 5 Years) and At-Risk Patients (6 to 49) Years Aged Out No longer eligible based on patient's age to complete this topic RSV under 20 months Aged Out No longe r eligible based on patient's age to complete this topic Rotavirus Vaccines Aged Out No longer eligible based on patient's age to complete this topic Insurance DENTAL - HSN PARTIAL (MEDICAID)
--- OUTSIDE RECORDS SUMMARY | 2024-11-25 13:33 | XMS_ITS | Encounter Summary ---
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 [address] [place] [address] Dental, Provider, DDS Social History Tobacco Use Types Packs/Day Years Used Date Smoking Tobacco: Never Assessed Comments Unknown Sex and Gender Information Value Date Recorded Sex Assigned at Female 12/11/2021 10:25 AM EDT Legal Sex Female 10:25 AM EDT Gender Identity Female 12/11/2021 10:25 AM EDT Sexual Orientation Straight 12/11/2021 10 :25 AM EDT COVID-19 Exposure Response Date Recorded In the last 10 days, have yo u been in contact with someone who was confirmed or suspected to have Coronavirus/COVID-19? No / Unsure 01/15/2022 11:24 AM EST documented as of this encounter Plan of Treatment Not on file documented as of this encounter Visit Diagnoses Not on filedocumented in this encounter
--- OUTSIDE RECORDS SUMMARY | 2024-11-25 13:33 | XMS_ITS | Encounter Summary ---
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 Role Phone Unavailable Primary Care Provider Unavailabl e Encounter Details Date Type Department Care Team (Latest Contact Info) Description 06/09/2018 Abstract [facility] Dental, Provider, DDS Social History Tobacco Use Types Packs/Day Years Used Date Smoking Tobacco: Never Assessed Comments Unknown Sex and Gender Information Value Date Recorded Sex Assigned at Female 12/11/2021 10:25 AM EDT Legal Sex Female 10:25 AM EDT Gender Identity Female 12/11/2021 10:25 AM EDT Sexual Orientation Straight 12/11/2021 10 :25 AM EDT documented as of this encounter Plan of Treatment Not on file documented as of this encounter Visit Diagnoses Not on filedocumented in this encounter
--- OUTSIDE RECORDS SUMMARY | 2024-11-25 13:33 | XMS_ITS | Clinical Summary ---
Author Organization [facility] Address [address] [facility] [address] [place] [id number] Phone Care Team Providers Care Fur Blower Name Role Phone Cristian Olvera MD Primary Care Provider Unavail able Allergies No known active allergies Medications spironolactone (ALDACTONE) 50 MG tablet 8 Active ALPRAZolam (XANAX) 0.25 MG tablet Take 1 tablet (0.25 mg total) by mouth as needed. Please bring with you day of procedure. Do not take until instructed to. 1 tablet 4 Active moxifloxacin (VIGAMOX) 0.5 % ophthalmic solution Place 1 drop into the right eye 4 (four) times a day. Place 1 drop into the right eye 4 (four) times a day. Start day before procedure 3 mL 1 4 Active prednisoLONE acetate (PRED FORTE) 1 % ophthalmic suspension Place 1 drop into the right eye 4 (four) times a day. Start after surgery as instructed 5 mL 1 4 Active oxyCODONE-aceta minophen (PERCOCET) 5-325 mg per tablet Take 1 tablet by mouth every 4 (four) hours as needed for pain (specific location in comments). Patient may request partial fill. 5 tablet 4 Active ALPRAZolam (XANAX) 0.25 MG tablet Take 1 tablet (0.25 mg total) by mouth once for 1 dose. Please bring with you day of procedure. Do not take until instructed to. 1 tablet 4 Active moxifloxacin (VIGAMOX) 0.5 % ophthalmic solution Place 1 drop into the left eye 4 (four) times a day. Place 1 drop into the right left eye 4 (four) times a day. Start day before procedure 3 mL 1 4 Active prednisoLONE acetate (PRED FORTE) 1 % ophthalmic suspension Place 1 drop into the left eye 4 (four) times a day. Start after surgery as directed 5 mL 1 4 Active oxyCODONE-aceta minophen (PERCOCET) 5-325 mg per tablet Take 1 tablet by mouth every 4 (four) hours as needed for pain (specific location in comments). Patient may request partial fill. 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 Not on aimee e 06/08/2022 Are you concerned about learning? Not on file 06/08/2022 No 06/08/2022 No 06/08/2022 Digital Access Answer Date Recorded No 07/07/2022 No 07/07/2022 Reliable internet access at home? Not on file 07/07/2022 Device with a working camera? Not on file Comments Unknown Sex and Gender Information Value Date Recorded Sex Assigned at Not on file Legal Sex Female 3:42 PM EST Gender Identity Not on file Sexual Orientation Not on file Plan of Treatment Health Maintenance Due Date Last Done Comments BLOOD PRESSURE 1985 POTASSIUM LEVEL 1985 DEPRESSION SCREENING 1997 HEPATITIS C SCREENING 07/18/2003 HIV ONE-TIME SCREENING (18-6 5 YEARS) 07/18/2003 PAP SMEAR 2006 Adult Td,Tdap Booster 09/30/2023 09/29/2013 INFLUENZA VACCINE (#1) 2024 0, 10/22/2018, 10/23/2017 COVID-19 VACCINE (3 - 2024-2 6 season) 2024 03/11/2020, 02/10/2020 SMOKING STATUS SCREENING (On ce After 26 Yrs) Completed 12/20/2023 HEPATITIS A VACCINES Aged Out No long er eligible based on patient's age to complete this topic HIB VACCINES Aged Out No longer eligi ble based on patient's age to complete this topic MENINGOCOCCAL VACCINES (ACWY) Aged Out No longer eligible based on patient's age to complete this topic MENINGOCOCCAL VACCINES (B) Aged Out N o longer eligible based on patient's age to complete this topic PNEUMOCOCCAL VACCINES (0-49 years) Aged Out No longer eligible b ased on patient's age to complete this topic Medical Devices Not on file Insurance [facility] [id number] Care Teams Fur Blower Relationship Specialty Start Date End Date Cristian Olvera MD PCP - General 04/05/17 Additional Source Comments The information contained in this document represents components of the legal health record. It is not the complete legal health record.[facility]
== END 2024-11-25 10:57 | disposition home or self-care (01) ==
PROVIDERS: Emergency Provider Emergency Medicine; PCP Internal Medicine
DX: R11.2 Nausea with vomiting, unspecified (principal); R19.7 Diarrhea, unspecified; R51.9 Headache, unspecified; Z03.818 Encounter for observation for suspected exposure to other biological agents ruled out; F41.1 Generalized anxiety disorder
CPT/HCPCS: 36415; 80048; 80061; 80076; 81001; 81025; 83690; 85025; 87637; 96372; 99283; 99284; J1885